=== PATIENT | male | born 1960 | race Caucasian/White ===

== ENCOUNTER 2022-02-08 08:33 | Outpatient (CLI) | payer BC, SELFPAY ==
[2022-02-08 17:34] LABS: Cholesterol* 122 mg/dL (90-199)
[2022-02-08 17:35] LABS: HDL Cholesterol* 32 mg/dL (>=40); LDL Cholesterol Calculated 75 mg/dL (<100); Triglycerides* 75 mg/dL (40-149)
[2022-02-08 18:07] LABS: PSA Screen* 0.93 ng/mL (0.10-4.00)
[2022-02-09 15:51] LABS: Sex Hormone Binding Globulin 46 nmol/L (19-76); Testosterone, Adult Male 349 ng/dL (300-720); Testosterone, Free Calculation 52 pg/mL (47-244); Testosterone, Percentage Free 1.5 % (1.6-2.9)
== END 2022-02-08 08:34 | disposition home or self-care (01) ==
PROVIDERS: PCP Family Medicine; Visit Provider Family Medicine
DX: R53.83 Other fatigue (principal); M06.9 Rheumatoid arthritis, unspecified; F32.9 Major depressive disorder, single episode, unspecified; D12.6 Benign neoplasm of colon, unspecified; Z79.899 Other long term (current) drug therapy; Z12.5 Encounter for screening for malignant neoplasm of prostate; Z13.6 Encounter for screening for cardiovascular disorders; G47.30 Sleep apnea, unspecified
CPT/HCPCS: 80061; 84153; 84403

== ENCOUNTER 2022-03-03 11:54 | Outpatient (CLI) | payer BC, SELFPAY ==
[2022-03-03 15:47] LABS: SARS PCR* Negative SARS-CoV-2 (Negative)
== END 2022-03-03 11:55 | disposition home or self-care (01) ==
LOC: OP CLINIC 11:55
PROVIDERS: PCP Family Medicine; Visit Provider Surgery
DX: Z12.11 Encounter for screening for malignant neoplasm of colon (principal); K63.5 Polyp of colon; Z86.010 Personal history of colon polyps
CPT/HCPCS: 45385; 87635; 88305; J2250; J3010

== ENCOUNTER 2022-03-16 19:43 | Outpatient (CLI) | payer BC, SELFPAY | END 2022-03-16 19:44 | disposition home or self-care (01) | PROVIDERS: PCP Family Medicine; Visit Provider Family Medicine | DX: G47.30 Sleep apnea, unspecified (principal) | CPT/HCPCS: 95806 ==

== ENCOUNTER 2022-06-20 15:36 | Inpatient (IN) | payer BC, SELFPAY ==
[2022-06-20] VITALS (8 sets, daily range): BP systolic 117–146; BP diastolic 66–92; PULSE 68–76; RESP 14–18; TEMP 36.7–36.9; O2SAT 98–100; BMI 27.4; BMI 27.1
--- NOTE | 2022-06-20 17:13 | ED.GENADULT ---
HPI - General Adult General Time Seen by Provider: 17:13 Date Seen: 06/20/22 Chief complaint: Abdominal Pain Stated complaint: Blockage Time Seen by Provider: 06/20/22 17:13 Source: patient, RN notes reviewed and old records reviewed Mode of arrival: ambulatory Limitations: no limitations History of Present Illness HPI narrative: Patient is a 62-year-old male referred to the ER by a [facility] for gallbladder issues. He states he has a bile duct blockage in needs his gallbladder out. 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 He stopped at a hospital in [place] because he noticed that his urine was getting dark and he was only able to eat small amounts of food. He states that he was hospitalize, they thought maybe that the bile duct blockage had resolved because his liver enzymes were going down. He states he had a CT and then an MRI. He talks about a 1 to 1.5 mm stone. He was supposed to go to [place] after [place]. He was hospitalized 06 16-06 17. On Monday he noted his stool turned white and his urine was turning darker again when it had been improving. He decided to drive back to [place]. His urine is dark, orange tinge now when it was more bright yellowish. His bowel is a bit better but it still light chen, not back to normal. He has had no fevers, no vomiting. He gets nauseated if he drinks or eats too much. If he eats too much she also gets a gas feeling like he can not get rid of or burp to relieve it. He is really not in much pain per report. He states he requested the records to be sent here but did not get any of them at the clinic per report. I have labs from [facility] on 06/17/22 which showed normal electrolytes, AST of 253, ALT of 480, alkaline phosphatase of 162, lipase of 51. Urine showed bilirubin but no evidence of infection. His white blood count was normal, hemoglobin was normal at 14.2. He had a negative rapid COVID. I do not have his imaging reports. Patient does admit that he had been on Augmentin, was called in by the PA that he had seen in [place]. He started getting significant itching but no rash after taking this. He was not sure if that might be an allergy. Reviewed with him it might be interaction between the elevated bilirubin/liver issues verses possible her allergic reaction. I think at this point will avoid penicillins and go with a different class of medicines. Have had multiple conversations with our surgeon Dr. Slaughter, we have contacted [facility]/[place]/[facility]/[place], no availability at these facilities to transfer for ERCP. Related Data Home Medications Medication Instructions Recorded Confirmed epinephrine 0.3 mg/0.3 mL 0.3 mg IM ONCE PRN 01/28/22 03/11/22 injection, auto-injector Previous Rx's Medication Instructions Recorded tramadol 50 mg tablet 50 - 100 mg PO Q6H PRN pain #30 05/05/22 tabs dextroamphetamine-amphetamine 20 30 mg PO QDAY #45 tabs 06/06/22 mg tablet Allergies Allergy/AdvReac Type Severity Reaction Status Date / Time bee venom protein (honey bee) Allergy Severe Hives Verified 03/11/22 09:37 Sulfa (Sulfonamide Allergy Mild Rash Verified 03/11/22 09:37 Antibiotics) Review of Systems Status of ROS: Reports: 10 or more systems reviewed and unremarkable except as noted in History and below [facility] Medical History Back pain Onychomycosis Family History Other Colon cancer Social History Smoking Status: Never smoker Exam Const: Vital Signs, click to edit/add: Vital Signs - 24 hr 06/20/22 16:19 Temperature 98.5 F Pulse Rate [Pulse Oximeter] 76 Respiratory Rate 18 Blood Pressure [Ri ght Upper Arm] 120/86 Pulse Oximetry 100 Oxygen Delivery Me thod Room Air Documenting provider has reviewed patient's vital signs: yes Common normals: no apparent distress, average body habitus, oriented x3, no limitations, healthy appearing and alert General appearance: cooperative, comfortable, well kempt and well developed HENMT: Common normals: normocephalic, head/scalp atraumatic, hearing grossly normal bilaterally, external ears normal, external nose normal, nasal mucous membranes and turbinates normal, moist oral mucous membranes, oropharynx normal, dentition normal and gingiva normal Head and scalp: normocephalic and atraumatic Nose: external nose normal and nasal mucous membranes and turbinates normal External ear: external ears normal Eye: Common normals: PERRL, EOMs intact bilaterally and conjunctivae normal Conjunctiva: conjunctiva(e) normal Sclera: sclera abnormal (Mild bilateral icterus appreciated) Pupil: PERRL Neck & C-Spine: Common normals: full ROM, no lymphadenopathy, supple, no meningeal signs, no JVD and thyroid normal Thyroid: thyroid normal Resp: Common normals: normal respiratory effort, no retractions, no use of accessory muscles and clear to auscultation bilaterally Auscultation: clear to auscultation bilaterally Cardio: Common normals: no JVD, regular rate, regular rhythm, S1 normal heart sound, S2 normal heart sound, no gallops, no clicks and no murmurs Rate: regular rate Rhythm: regular rhythm Heart sounds: S1 normal and S2 normal GI: Common normals: Normal to inspection, nondistended, normoactive bowel sounds present, soft to palpation (Very mild right upper quadrant tenderness without any rebound or guarding ), no hepatosplenomegaly and no masses Palpation: soft (Very mild right upper quadrant tenderness without any rebound or guarding ) and no hepatosplenomegaly Neuro: Common normals: oriented x3 and gait normal Sensorium/orientation: alert Meningeal signs: no meningeal signs Speech: speech normal Psych: Appearance: well kempt Course Course Hospital Course: Nursing staff did establish an IV, I will order labs off the blood drawn. Will repeat his chemistries, CBC and liver enzymes, lipase. We will obtain a right upper quadrant ultrasound. May need to proceed with CT. I have discussed with him that sometimes people in this situation need an ERCP which we cannot do here. We will just take this workup stepwise and see where leads us. He is not that painful right now, no fever. He understands we do need to update his COVID in case he needs anything procedure only. He is in agreement with this plan. Consultations Consultation #1: Multiple conversations with our surgeon on-call. This time were unable to transfer this patient. There is concern for obstructive change. Patient is at risk for infection based on his immunologic given for his rheumatoid arthritis. Recommendation is for hospitalization here with initiation of antibiotics, cholecystectomy either prior or after ERCP. Will have to figure out the ERCP component. Consultation #2: Spoke with our hospitalist Dr. Peña. Will be assuming care. We discussed antibiotics. She requested I initiate ertapenem which I have. She will be assuming care. Time: 20:26 Vital Signs Vital signs: Initial Vital Signs Temperature 98.5 F 06/20/22 16:19 Temperature Source Temporal Artery Scan 06/20/22 16:19 Pulse Rate 76 06/20/22 16:19 Respiratory Rate 18 06/20/22 16:19 Blood Pressure 120/86 06/20/22 16:19 Blood Pressure Mean 97 06/20/22 16:19 Blood Pressure Position Sitting 06/20/22 16:19 Pulse Oximetry 100 06/20/22 16:19 Oxygen Delivery Method 06/20/22 16:19 Vital Signs Temperature 98.5 F 06/20/22 16:19 Pulse Rate 76 06/20/22 16:19 Respiratory Rate 18 06/20/22 16:19 Blood Pressure 120/86 06/20/22 16:19 Pulse Oximetry 100 06/20/22 16:19 Oxygen Delivery Method 06/20/22 16:19 Temperature 98.5 F 06/20/22 16:19 Pulse Rate 76 06/20/22 16:19 Respiratory Rate 18 06/20/22 16:19 Blood Pressure 120/86 06/20/22 16:19 Pulse Oximetry 100 06/20/22 16:19 Oxygen Delivery Method 06/20/22 16:19 Medical Decision Making Lab Data Lab results reviewed: Yes I reviewed the patient's lab results Labs: Lab Results 06/20/22 06/20/22 06/20/22 Range/Units 17:15 17:15 17:35 WBC 8.38 (4.50-11.00) K/uL RBC 5.10 (4.30-5.90) m/uL Hgb 15.4 (13.5-17.5) gm/dL Hct 45.7 (37.0-53.0) % MCV 90 (80-100) fL MCH 30 (26-34) pg MCHC 34 (32-36) gm/dL RDW Coeff of Rosibel 13.5 (11.5-15.5) % Plt Count 331 (140-440) K/uL Neut % (Auto) 59.9 (42.0-72.0) % Lymph % (Auto) 25.4 (20-44) % [place] % (Auto) 8.5 (0.0-11.0) % Eos % (Auto) 5.0 (0.0-7.0) % Baso % (Auto) 0.7 (0.0-3.0) % Neut # (Auto) 5.02 (1.7-7.0) K/uL Lymph # (Auto) 2.13 (0.90-2.90) K/uL [place] # (Auto) 0.70 (0.00-0.90) K/UL Eos # (Auto) 0.42 (0.00-0.50) K/uL Baso # (Auto) 0.06 (0.00-0.30) K/uL Abs Immat Gran (auto) 0.04 (0.00-0.30) K/uL Imm/Tot Granulo (auto) 0.5 % Sodium 138 (135-149) mmol/L Potassium 3.8 (3.6-5.1) mmol/L Chloride 104 (96-114) mmol/L Carbon Dioxide 26 (20-32) mmol/L BUN 13 (7-30) mg/dL Creatinine 1.0 (0.5-1.5) mg/dL Estimated Creat Clear 74.10 Estimated GFR 85 ml/min Glucose 91 (60-115) mg/dL Calcium 9.2 (8.4-10.6) mg/dL Total Bilirubin 5.2 H (0.1-1.5) mg/dL Direct Bilirubin 4.0 H (0.0-0.5) mg/dL AST 115 H (12-35) U/L ALT 297 H (4-50) U/L Alkaline Phosphatase 218 H (40-150) U/L C-Reactive Protein 0.7 (0.5-1.0) mg/dL Total Protein 7.5 (6.0-8.3) g/dL Albumin 4.4 (3.3-5.0) g/dL Lipase 123 (23-300) U/L SARS-CoV-2 (PCR) Negative SARS-CoV-2 (Negative) Imaging Data US - abdomen: Attestation: I have reviewed the pertinent imaging results. Radiologist's impression: Patient: WILLEM CINTRON Facility:?[facility] Patient ID:?[id number] Site Patient ID:?[id number]. Site :?[id number] Study:?US Abdomen RUQ-06/20/2022 6:57:18 PM Ordering Physician:Amanda Bangura Final Report: INDICATION: Jaundice, known gallbladder disease per patient at outside location. TECHNIQUE: Ultrasound abdomen limited. Sonographic images of the right upper quadrant were obtained using jaffe-scale and color Doppler images. COMPARISON: None. FINDINGS: Liver: Normal in size and echotexture. No suspicious masses. No intrahepatic biliary dilation. Gallbladder: Distended with large amount of echogenic material, probably a combination of sludge and small stones. Normal wall thickness. No pericholecystic fluid. Common bile duct: Dilated measuring 10 mm. Questionable echogenic material in the common bile duct could be sludge. Pancreas: Unremarkable. Right kidney: Normal in size. Normal echotexture and cortex. No suspicious masses, stones, or hydronephrosis. Simple cyst. Vasculature: Proximal abdominal aorta and IVC are unremarkable. IMPRESSION: Large amount of gallbladder sludge with possible gallstones. Dilated common bile duct raises the possibility of choledocholithiasis. Consider ERCP or MRCP, as clinically indicated. Dictated by Marcin Patton MD @ 06/20/2022 7:40:43 PM (Electronic Signature) Critical Care Time Critical Care Time Critical Care Time: No Discharge Plan Discharge Clinical Impression: Cholelithiasis with choledocholithiasis Patient Disposition: Admitted As Inpatient Condition: Stable
--- NOTE | 2022-06-20 17:27 | CRLHL7_ITS ---
For Patients: As a result of the Cures Act, medical imaging exams and procedure reports are released immediately into your electronic medical record. You may view this report before your referring provider. If you have questions, please contact your health care provider. INDICATION: Jaundice, known gallbladder disease per patient at outside location. TECHNIQUE: Ultrasound abdomen limited. Sonographic images of the right upper quadrant were obtained using jaffe-scale and color Doppler images. COMPARISON: None. FINDINGS: Liver: Normal in size and echotexture. No suspicious masses. No intrahepatic biliary dilation. Gallbladder: Distended with large amount of echogenic material, probably a combination of sludge and small stones. Normal wall thickness. No pericholecystic fluid. Common bile duct: Dilated measuring 10 mm. Questionable echogenic material in the common bile duct could be sludge. Pancreas: Unremarkable. Right kidney: Normal in size. Normal echotexture and cortex. No suspicious masses, stones, or hydronephrosis. Simple cyst. Vasculature: Proximal abdominal aorta and IVC are unremarkable. IMPRESSION: Large amount of gallbladder sludge with possible gallstones. Dilated common bile duct raises the possibility of choledocholithiasis. Consider ERCP or MRCP, as clinically indicated. Dictated by Marcin Patton MD @ 06/20/2022 7:40:43 PM (Electronically Signed)
[2022-06-20 17:54] LABS: Albumin* 4.4 g/dL (3.3-5.0); Chloride* 104 mmol/L (96-114); Sodium* 138 mmol/L (135-149)
[2022-06-20 17:55] LABS: Basophils Absolute Auto 0.06 K/uL (0.00-0.30); Basophils Percent Auto 0.7 % (0.0-3.0); Eosinophils Absolute Auto 0.42 K/uL (0.00-0.50); Hematocrit 45.7 % (37.0-53.0); Hemoglobin* 15.4 gm/dL (13.5-17.5); Immature Granulocytes Abs Auto 0.04 K/uL (0.00-0.30); Immature Granulocytes Pct Auto 0.5 %; Lymphocytes Absolute Auto 2.13 K/uL (0.90-2.90); Lymphocytes Percent Auto 25.4 % (20-44); Mean Corpuscular HGB Conc 34 gm/dL (32-36); Mean Corpuscular Hemoglobin 30 pg (26-34); Mean Corpuscular Volume 90 fL (80-100); Monocytes Percent Auto 8.5 % (0.0-11.0); Neutrophils Absolute Auto 5.02 K/uL (1.7-7.0); Neutrophils Percent Auto 59.9 % (42.0-72.0); Platelet Count* 331 K/uL (140-440); Potassium* 3.8 mmol/L (3.6-5.1); RDW Coefficient of Variation % 13.5 % (11.5-15.5); White Blood Count* 8.38 K/uL (4.50-11.00)
[2022-06-20 17:56] LABS: Slide Review Reflex No
[2022-06-20 17:57] LABS: Aspartate Amino Transferase* 115 U/L (12-35); Bilirubin Total* 5.2 mg/dL (0.1-1.5); Carbon Dioxide* 26 mmol/L (20-32); Estimated Glomerular Filt Rate 85 ml/min
[2022-06-20 17:58] LABS: Alanine Aminotransferase* 297 U/L (4-50); Alkaline Phosphatase* 218 U/L (40-150); Blood Urea Nitrogen* 13 mg/dL (7-30); Calcium* 9.2 mg/dL (8.4-10.6); Glucose* 91 mg/dL (60-115); Lipase* 123 U/L (23-300); Total Protein* 7.5 g/dL (6.0-8.3)
[2022-06-20 18:01] LABS: C Reactive Protein* 0.7 mg/dL (0.5-1.0)
[2022-06-20 18:15] LABS: SARS PCR* Negative SARS-CoV-2 (Negative)
--- NOTE | 2022-06-20 20:02 | ED.NURSE ---
Facilities contacted for potential ERCP for Pt. [facility] system: Declined [facility] system: Declined [facility] system: Full/Declined Critical access hospital system: Full/Declined [facility]: Full/Declined
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
[2022-06-20] MEDS: ERTAPENEM 1 GM in 0.9 % SODIUM CHLORIDE Mini-bag 100 ML IVPB (21:00)
--- NOTE | 2022-06-20 21:28 | ED.NURSE ---
Report given to RAEANN Eduardo. Pt will go to Rm 258.
[2022-06-20] MEDS: ACETAMINOPHEN 325 MG TABLET PO (21:59)
[2022-06-20] MEDS: 5 % DEXTROSE IN LAC RINGER'S 1,000 ML 100 ML IV (22:00)
[2022-06-20 22:07] LABS: INR 0.84 (0.91-1.10); Prothrombin Time 12.1 Seconds
[2022-06-20 22:10] LABS: Gamma Glutamyl Transpeptidase* 328 U/L (8-55)
[2022-06-20] MEDS: PANTOPRAZOLE SODIUM 40 MG INJ IVP (22:57)
[2022-06-21] VITALS (27 sets, daily range): BP systolic 100–157; BP diastolic 58–106; PULSE 62–85; RESP 14–19; TEMP 35.8–36.9; O2SAT 71–97
--- NOTE | 2022-06-21 05:16 | PC.NURSE ---
[id number] Pt slept all night, denies pain, NPO with very small sips/chips during night. voiding adaquately
--- NOTE | 2022-06-21 06:40 | P.GSCN_ITS ---
History of Present Illness Consult details Date Seen: 06/21/22 Consult date: 06/21/22 Narrative: The patient is a 62-year-old male in with a history of rheumatoid arthritis on immune modulating agents who last Monday noted his urine was very dark. This happened while he was traveling through [place] for work. He stopped and the [facility] emergency department had labs which showed elevated liver function tests. There he also had a CT scan and an MRCP. I do not have results of this, however reportedly there was choledocholithiasis and no mass. His labs improved during his stay in the ER and it was thought that perhaps the stone passed and so he elected to continue on with his trip. He went to [place] and finishes work. On Monday he noted his stool had turned white and his urine was again dark. On Monday he drove back home. He then came in to see Dr. Marina yesterday however being unable to obtain any urgent workup in clinic was referred to the emergency department. He states that other than the light colored stools and dark urine, he has not had any other symptoms. No pain, no nausea, no vomiting. He feels as though his hands may be more swollen. He has never had anything like this before. He does not drink alcohol. Review of Systems Status of ROS: Reports: 10 or more systems reviewed and unremarkable except as noted in History and below [facility] Medical History (Updated 06/20/22 @ 21:40 by Coni Peña MD) ADD (attention deficit disorder) Bee sting reaction Dyslipidemia MINO (obstructive sleep apnea) Rheumatoid arthritis Surgical History No history of previous surgery Family History (Updated 06/21/22 @ 08:51 by Carolin Slaughter MD) Other Colon cancer Social History (Updated 06/20/22 @ 21:36 by Coni Peña MD) Narrative: Nonsmoker, nondrinker. 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 Travels. . However, lives separately from his Coni. Three adult children. Highest level of school completed/degree received: some college, no degree Smoking Status: Never smoker Do you use any of these nicotine containing products: None Second hand tobacco smoke exposure: No How often do you have a drink containing alcohol: never AUDIT-C Alcohol total score: 0 Non-prescribed substance use: denies use Caffeine: Yes (2 cans soda daily) service: No Meds Home Medications and Allergies Home Medications Medication Instructions Recorded Confirmed Type epinephrine 0.3 mg/0.3 mL 0.3 mg IM ONCE PRN 01/28/22 06/21/22 History injection, auto-injector Allergies Allergy/AdvReac Type Severity Reaction Status Date / Time bee venom protein (honey bee) Allergy Severe Hives Verified 03/11/22 09:37 Sulfa (Sulfonamide Allergy Mild Rash Verified 03/11/22 09:37 Antibiotics) Exam Narrative: Exam Narrative: General appearance: Alert, cooperative, and in no distress Eyes: PERRLA, eye lids clear, and scleral icterus HENT Head: Normocephalic Ears: External ears normal Pulmonary: Breathing nonlabored on room air Cardiovascular Heart: Regular rate Extremities: warm and well perfused Gastrointestinal Abdominal: soft, no-tender, non distended. No scars Musculoskeletal: Extremities: Upper: Both upper extremities have normal joint range of motion and intact strength. Lower: Both lower extremities have normal joint range of motion and intact strength. Skin: mildly jaundiced Neurologic: No focal deficits Psychiatric: Alert, oriented, cooperative, normal affect. Const: Vital Signs, click to edit/add: Vital Signs - 24 hr 06/20/22 16:19 06/20/22 21:32 06/20/22 21:35 Temperature 98.5 F 98.5 F Pulse Rate Pulse Rate [Left A pical] Pulse Rate [Pulse Oximeter] 76 68 68 Pulse Rate [orthos tatic lying Left A pical] Pulse Rate [orthos tatic sitting Left Apical] Pulse Rate [orthos tatic standing Lef t Apical] Respiratory Rate 18 14 14 Blood Pressure [Ri ght Arm] Blood Pressure [Ri ght Upper Arm] 120/86 117/66 117/66 Blood Pressure [or thostatic lying Ri ght Arm] Blood Pressure [or thostatic sitting Right Arm] Blood Pressure [or thostatic standing Right Arm] Pulse Oximetry 100 100 Oxygen Delivery Me thod Room Air Room Air 06/20/22 21:59 06/20/22 21:39 06/20/22 22:17 Temperature 98.1 F 98.1 F 98.1 F Pulse Rate Pulse Rate [Left A pical] 69 Pulse Rate [Pulse Oximeter] Pulse Rate [orthos tatic lying Left A pical] Pulse Rate [orthos tatic sitting Left Apical] Pulse Rate [orthos tatic standing Lef t Apical] Respiratory Rate 18 18 Blood Pressure [Ri ght Arm] 146/92 H Blood Pressure [Ri ght Upper Arm] Blood Pressure [or thostatic lying Ri ght Arm] Blood Pressure [or thostatic sitting Right Arm] Blood Pressure [or thostatic standing Right Arm] Pulse Oximetry 98 98 Oxygen Delivery Me thod Room Air Room Air 06/20/22 22:33 06/20/22 22:44 06/21/22 00:00 Temperature 98.2 F Pulse Rate Pulse Rate [Left A pical] 71 Pulse Rate [Pulse Oximeter] Pulse Rate [orthos tatic lying Left A pical] 71 Pulse Rate [orthos tatic sitting Left Apical] 76 Pulse Rate [orthos tatic standing Lef t Apical] 75 Respiratory Rate 18 18 Blood Pressure [Ri ght Arm] 137/106 H Blood Pressure [Ri ght Upper Arm] Blood Pressure [or thostatic lying Ri ght Arm] 138/85 Blood Pressure [or thostatic sitting Right Arm] 141/89 H Blood Pressure [or thostatic standing Right Arm] 142/89 H Pulse Oximetry 98 97 Oxygen Delivery Me thod Room Air Room Air 06/21/22 01:04 06/21/22 03:00 Temperature 97.9 F Pulse Rate 71 Pulse Rate [Left A pical] 66 Pulse Rate [Pulse Oximeter] Pulse Rate [orthos tatic lying Left A pical] Pulse Rate [orthos tatic sitting Left Apical] Pulse Rate [orthos tatic standing Lef t Apical] Respiratory Rate 16 Blood Pressure [Ri ght Arm] 100/58 L Blood Pressure [Ri ght Upper Arm] Blood Pressure [or thostatic lying Ri ght Arm] Blood Pressure [or thostatic sitting Right Arm] Blood Pressure [or thostatic standing Right Arm] Pulse Oximetry 95 Oxygen Delivery Me thod Room Air Results Labs Labs: Abnormal lab results 06/20/22 06/20/22 Range/Units 17:15 17:15 INR 0.84 L (0.91-1.10) Total Bilirubin 5.2 H (0.1-1.5) mg/dL Direct Bilirubin 4.0 H (0.0-0.5) mg/dL GGT 328 H (8-55) U/L AST 115 H (12-35) U/L ALT 297 H (4-50) U/L Alkaline Phosphatase 218 H (40-150) U/L Diabetes panel 06/20/22 Range/Units 17:15 Sodium 138 (135-149) mmol/L Potassium 3.8 (3.6-5.1) mmol/L Chloride 104 (96-114) mmol/L Carbon Dioxide 26 (20-32) mmol/L BUN 13 (7-30) mg/dL Creatinine 1.0 (0.5-1.5) mg/dL Glucose 91 (60-115) mg/dL Calcium 9.2 (8.4-10.6) mg/dL AST 115 H (12-35) U/L ALT 297 H (4-50) U/L Alkaline Phosphatase 218 H (40-150) U/L Total Protein 7.5 (6.0-8.3) g/dL Albumin 4.4 (3.3-5.0) g/dL Calcium panel 06/20/22 Range/Units 17:15 Calcium 9.2 (8.4-10.6) mg/dL Albumin 4.4 (3.3-5.0) g/dL Pituitary panel 06/20/22 Range/Units 17:15 Sodium 138 (135-149) mmol/L Potassium 3.8 (3.6-5.1) mmol/L Chloride 104 (96-114) mmol/L Carbon Dioxide 26 (20-32) mmol/L BUN 13 (7-30) mg/dL Creatinine 1.0 (0.5-1.5) mg/dL Glucose 91 (60-115) mg/dL Calcium 9.2 (8.4-10.6) mg/dL Adrenal panel 06/20/22 Range/Units 17:15 Sodium 138 (135-149) mmol/L Potassium 3.8 (3.6-5.1) mmol/L Chloride 104 (96-114) mmol/L Carbon Dioxide 26 (20-32) mmol/L BUN 13 (7-30) mg/dL Creatinine 1.0 (0.5-1.5) mg/dL Glucose 91 (60-115) mg/dL Calcium 9.2 (8.4-10.6) mg/dL Total Bilirubin 5.2 H (0.1-1.5) mg/dL AST 115 H (12-35) U/L ALT 297 H (4-50) U/L Alkaline Phosphatase 218 H (40-150) U/L Total Protein 7.5 (6.0-8.3) g/dL Albumin 4.4 (3.3-5.0) g/dL All other labs normal. Imaging Additional studies: Diagnostic Imaging Report Patient: Teofilo Osorio MR#: [id number] : 1960 Acct:[id number] Loc: ED Service Date: 06/20/[address]: Ordering Physician: Sveta Magallon M.D. Date of Service: 06/20/22 Procedure(s): US abdomen limited Accession Number(s): [id number] cc: Marcus Carreno M.D.; Sveta Magallon M.D.~ For Patients:? As a result of the Cures Act, medical imaging exams and procedure reports are released immediately into your electronic medical record.? You may view this report before your referring provider.? If you have questions, please contact your health care provider. INDICATION: Jaundice, known gallbladder disease per patient at outside location. TECHNIQUE: Ultrasound abdomen limited.? Sonographic images of the right upper quadrant were obtained using jaffe-scale and color Doppler images. COMPARISON: None. FINDINGS: Liver: Normal in size and echotexture.? No suspicious masses.? No intrahepatic biliary dilation. Gallbladder: Distended with large amount of echogenic material, probably a combination of sludge and small stones. Normal wall thickness.? No pericholecystic fluid. Common bile duct: Dilated measuring 10 mm.? Questionable echogenic material in the common bile duct could be sludge. Pancreas: Unremarkable.? Right kidney: Normal in size.? Normal echotexture and cortex.? No suspicious masses, stones, or hydronephrosis. Simple cyst. Vasculature: Proximal abdominal aorta and IVC are unremarkable.? IMPRESSION: Large amount of gallbladder sludge with possible gallstones. Dilated common bile duct raises the possibility of choledocholithiasis. Consider ERCP or MRCP, as clinically indicated. Dictated by Marcin Patton MD @ 06/20/2022 7:40:43 PM Assessment and Plan Assessment and plan (1) Cholelithiasis with choledocholithiasis: Problem comment: Hyperbilirubinemia. Minimal pain. Fluids, antibiotics. NPO. Will discuss with general surgery team if we transfer for ERCP and return for cholecystectomy, full transfer, or or cholangiogram/cholecystectomy. Status: Acute (2) Rheumatoid arthritis: Problem comment: Currently gets golimumab (Simponi) q 2 mo. last infusion was beginning of May. Followed by [facility] in [place]. 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 Status: Acute Plan The patient is a 62-year-old male with cholelithiasis and likely c holedocholithiasis. per report he did have choledocholithiasis on his MRCP from [facility], however I do not have that available. I discussed with the patient that in the event of painless jaundice we must rule out a mass, however he states that he saw the report and that no mass/tumor was noted. We are going to continue to try to get this report. I explained that the treatment for this is laparoscopic cholecystectomy as well as ERCP. Because we have been unable to transfer him for ERCP, we are planning on cholecystectomy and intraoperative cholangiogram which will likely at least make the diagnosis and decompress the bile duct temporarily. As long as he is not acutely ill we could get him for possible outpatient ERCP versus continuing to make attempts at inpatient transfer. We discussed the procedure as well as risks and benefits of surgery which include bleeding, infection, bile leak, conversion to open or injury to other structures, specifically the common bile duct. We also discussed recovery. I explained to him that Given this biliary obstruction, I recommend not postponing treatment because his immuno suppression does increases risk for sepsis. I recommend that he wait at least 2 weeks after surgery to resume his normal dosing. He is agreeable with this plan and signed informed consent. We will get him to the OR at the 1st availability.
[2022-06-21 06:44] LABS: Ionized Calcium* 1.17 mmol/L (1.11-1.30)
[2022-06-21 06:48] LABS: Hematocrit 42.1 % (37.0-53.0); Hemoglobin* 14.3 gm/dL (13.5-17.5); Mean Corpuscular HGB Conc 34 gm/dL (32-36); Mean Corpuscular Hemoglobin 30 pg (26-34); Mean Corpuscular Volume 89 fL (80-100); Platelet Count* 280 K/uL (140-440); Red Blood Count 4.72 m/uL (4.30-5.90); White Blood Count* 6.45 K/uL (4.50-11.00)
[2022-06-21 06:53] LABS: Slide Review Reflex No
[2022-06-21 07:06] LABS: Albumin* 3.4 g/dL (3.3-5.0); Chloride* 106 mmol/L (96-114)
[2022-06-21 07:07] LABS: Potassium* 3.9 mmol/L (3.6-5.1); Sodium* 138 mmol/L (135-149)
[2022-06-21 07:09] LABS: Creatinine* 0.9 mg/dL (0.5-1.5); Estimated Glomerular Filt Rate 97 ml/min
[2022-06-21 07:10] LABS: Alanine Aminotransferase* 240 U/L (4-50); Alkaline Phosphatase* 179 U/L (40-150); Aspartate Amino Transferase* 96 U/L (12-35); Bilirubin Total* 3.7 mg/dL (0.1-1.5); Blood Urea Nitrogen* 13 mg/dL (7-30); Calcium* 8.6 mg/dL (8.4-10.6); Carbon Dioxide* 26 mmol/L (20-32); Gamma Glutamyl Transpeptidase* 278 U/L (8-55); Glucose* 100 mg/dL (60-115); Magnesium* 1.9 mg/dL (1.5-2.6); Total Protein* 6.1 g/dL (6.0-8.3)
[2022-06-21 07:13] LABS: C Reactive Protein* 0.7 mg/dL (0.5-1.0)
[2022-06-21] MEDS: 5 % DEXTROSE IN LAC RINGER'S 1,000 ML 100 ML IV ×2 (07:47→13:55)
--- NOTE | 2022-06-21 11:42 | CRLHL7_ITS ---
For Patients: As a result of the Century Cures Act, medical imaging exams and procedure reports are released immediately into your electronic medical record. You may view this report before your referring provider. If you have questions, please contact your health care provider. INDICATION : Laparoscopic cholecystectomy. TECHNIQUE : Intraoperative cholangiogram. Contrast injected via gallbladder neck and cystic duct. FINDINGS : Fluoroscopy time was 105.6 seconds. One image was obtained. IMPRESSION : Normal caliber intra and extrahepatic ducts. No filling defects. Contrast seen within the duodenum. Normal intraoperative cholangiogram. Dictated by Wilfrid Greco MD @ 06/21/2022 1:07:01 PM (Electronically Signed)
[2022-06-21] MEDS: 0.9% SODIUM CHL 50 ML VIAL 15 ML INJECTION (12:30)
[2022-06-21] MEDS: BUPIVACAINE 0.5% 30 ML 20 ML INJECTION (12:35)
[2022-06-21] MEDS: IOPAMIDOL 50 ML VIAL 35 ML INJECTION (12:40)
--- NOTE | 2022-06-21 13:12 | P.GSOP_ITS ---
Operative Note Date of procedure: 06/21/22 Type of Procedure: 1. Laparoscopic cholecystectomy 2. Intraoperative cholangiogram Procedure Description: After discussing the risks and benefits of the procedure, the patient signed informed consent.? The operative site was marked and the patient was brought to the operating room and placed on the operating table in supine position.? Care was taken to pad the patient's pressure points.?? The patient was then intubated by anesthesia.?? The operative site was then prepped and draped in the usual sterile fashion.? A time-out was then performed. Entrance to the abdomen was gained via a 5 mm Visiport in the left upper q uadrant. The abdomen was insufflated and briefly surveyed for signs of injury. There was none. 11 mm umbilical port was placed as well as 2 working ports along the right costal margin. Patient was then placed in reverse Trendelenburg position with the right side up. The gallbladder fundus was grasped and retracted cephalad. The infundibulum was grasped. A combination of hook cautery and blunt dissection was used to carefully dissect out the cystic duct and artery until they could clearly be seen entering the gallbladder without any intervening structures. The gallbladder was dissected off the cystic plate to achieve the critical view. Once this was achieved a single clip was placed on the distal and the cystic duct and was partially transected with scissors. An intraoperative cholangiogram catheter was brought onto the field and inserted into the cystic duct. The catheter passed easily without any resistance. A C- arm was brought onto the field and an intraoperative cholangiogram performed, with no evidence of any retained stones and contrast flowing freely into the duodenum. The common bile duct and right and left hepatic ducts were also visualized. The C-arm was then removed from the field and the cholangiogram catheter removed from the cystic duct. Two clips were then placed proximally on the cystic duct and was fully transected. The artery was ligated with 1 clip distally and 2 clips proximally and transected with scissors. The gallbladder was then taken off of the liver bed. And removed from the abdomen using an Endo-Catch bag. The gallbladder bed was surveyed for hemostasis. A small amount of bile which had spilled was suctioned from the abdomen. The umbilical port fascia was closed via Geovany-Makenna with 0 Vicryl. The ports were then removed under direct vision.The skin was closed with absorbable subcuticular suture. Instrument sponge and needle counts were correct at the end of the case. The patient was then woken and transferred to the PACU in stable condition. ? Findings: Normal intraoperative cholangiogram with no evidence of retained stones. Cholelithiasis. Anesthesia: GETA Surgeon: Valerie Brennan MD Estimated blood loss (mL): 5 Condition: stable Disposition: PACU
--- NOTE | 2022-06-21 13:17 | W.ANESCHARGE ---
Anesthesia Charges Start Date/Time Anesthesia Start Date: 06/21/22 Anesthesia Start Time: 11:22 Stop Date/Time Anesthesia Stop Date: 06/21/22 Anesthesia Stop Time: 13:16 Summary Emergency: No
--- NOTE | 2022-06-21 13:25 | W.ANESCHARGE ---
Anesthesia Charges Start Date/Time Anesthesia Start Date: 06/21/22 Anesthesia Start Time: 11:22 Stop Date/Time Anesthesia Stop Date: 06/21/22 Anesthesia Stop Time: 13:16 Summary Emergency: No
--- NOTE | 2022-06-21 13:51 | SUR.PHASEI ---
patient met discharge criteria per anesthesia
[2022-06-21] MEDS: HYDROmorphone 0.5 mg/0.5 ml inj IVP ×2 (13:55→14:56)
[2022-06-21] MEDS: OXYCODONE 5 MG TABLET PO ×2 (16:06→21:20)
--- NOTE | 2022-06-21 17:16 | PC.NURSE ---
Shift Summary: Patient pleasant and cooperative. C/o bladder pain post-op, bladder scan done and found 337cc, encouraged to go to bathroom to void, able to void 300cc and stated he felt relief, has voided 600cc since. Saline locked, tolerating regular diet, denies nausea. C/o itching however stated he had this prior to surgery. Vitals stable and WNL. at bedside earlier in evening. SBA to bathroom due to weakness/pain.
[2022-06-22 02:11] VITALS: BP 128/66; PULSE 77; RESP 18; TEMP 36.8; O2SAT 97
[2022-06-22 02:41] VITALS: PULSE 72
--- NOTE | 2022-06-22 03:15 | PC.NURSE ---
: Pt up by self in room, i&o adeq, pain minimal thus denied ice and meds. VSS on RA, incisions intact no drainage.
[2022-06-22 06:42] LABS: Albumin* 3.4 g/dL (3.3-5.0)
[2022-06-22 06:44] LABS: Bilirubin Direct* 1.1 mg/dL (0.0-0.5); Bilirubin Total* 2.5 mg/dL (0.1-1.5)
[2022-06-22 06:45] LABS: Alanine Aminotransferase* 191 U/L (4-50); Alkaline Phosphatase* 172 U/L (40-150); Aspartate Amino Transferase* 69 U/L (12-35); Total Protein* 6.1 g/dL (6.0-8.3)
[2022-06-22 07:36] VITALS: PULSE 71
[2022-06-22 08:27] VITALS: BP 107/65; PULSE 85; RESP 16; TEMP 36.7; O2SAT 95
[2022-06-22 09:02] LABS: Chloride* 107 mmol/L (96-114); Sodium* 137 mmol/L (135-149)
[2022-06-22 09:03] LABS: Basophils Percent Auto 0.1 % (0.0-3.0); Eosinophils Percent Auto 0.6 % (0.0-7.0); Hematocrit 42.9 % (37.0-53.0); Hemoglobin* 14.3 gm/dL (13.5-17.5); Immature Granulocytes Pct Auto 0.1 %; Lymphocytes Percent Auto 12.5 % (20-44); Mean Corpuscular HGB Conc 33 gm/dL (32-36); Mean Corpuscular Hemoglobin 30 pg (26-34); Mean Corpuscular Volume 91 fL (80-100); Monocytes Percent Auto 7.1 % (0.0-11.0); Neutrophils Percent Auto 79.6 % (42.0-72.0); Platelet Count* 283 K/uL (140-440); RDW Coefficient of Variation % 13.4 % (11.5-15.5); Red Blood Count 4.73 m/uL (4.30-5.90); White Blood Count* 14.15 K/uL (4.50-11.00)
[2022-06-22 09:05] LABS: Carbon Dioxide* 25 mmol/L (20-32); Estimated Glomerular Filt Rate 85 ml/min
[2022-06-22 09:06] LABS: Blood Urea Nitrogen* 17 mg/dL (7-30); Calcium* 8.8 mg/dL (8.4-10.6); Glucose* 104 mg/dL (60-115)
[2022-06-22 09:08] LABS: Slide Review Reflex No
--- NOTE | 2022-06-22 12:18 | P.DS_ITS ---
DS: Providers Provider Date Seen: 06/22/22 Date of admission: 06/20/22 21:39 Primary care physician: Marcus Carreno MD Admitting Clinician: Coni Peña MD Attending Physician on discharge: Coni Peña MD DS: Summary Hospital Course Hospital Course: Patient was admitted to the hospital for cholecystitis and choledocholithiasis. He underwent a laparoscopic cholecystectomy with intraoperative cholangiogram. No evidence of any retained stones on the intraoperative imaging. On postop day 1 he did have down trending bilirubin and transaminases. At the time of discharge he was tolerating a regular diet, ambulating without difficulty, pain was well controlled and had return of bowel function. Patient was discharged to home with 2 week follow-up. Time Spent with Patient Time attestation: Total time spent providing and/or coordinating discharge services: Exam Narrative: Exam Narrative: General: Alert and oriented, no acute distress. Lying comfortably in bed. Abdomen: Soft, nondistended, appropriately tender over incision sites. Some mild ecchymoses around the umbilical incision. No concern for infection. Const: Vital Signs, click to edit/add: Vital Signs - 24 hr 06/21/22 13:11 06/21/22 13:40 06/21/22 13:15 Temperature 97.3 F L 96.8 F L 97.3 F L Pulse Rate 78 70 76 Pulse Rate [Left B rachial] Respiratory Rate 19 16 17 Blood Pressure 143/85 H 124/80 131/86 Blood Pressure [Ri ght Arm] Pulse Oximetry 95 94 94 Oxygen Delivery Me thod 06/21/22 13:20 06/21/22 13:25 06/21/22 13:30 Temperature 97.3 F L 97.3 F L 97.3 F L Pulse Rate 71 76 74 Pulse Rate [Left B rachial] Respiratory Rate 17 16 16 Blood Pressure 125/77 132/83 137/84 Blood Pressure [Ri ght Arm] Pulse Oximetry 94 97 94 Oxygen Delivery Me thod 06/21/22 13:35 06/21/22 14:41 06/21/22 13:48 Temperature 97.3 F L 96.8 F L Pulse Rate 71 67 70 Pulse Rate [Left B rachial] Respiratory Rate 17 14 Blood Pressure 124/81 Blood Pressure [Ri ght Arm] 127/90 H Pulse Oximetry 93 Oxygen Delivery Me thod Room Air 06/21/22 14:00 06/21/22 14:15 06/21/22 15:24 Temperature 96.8 F L 97 F L 96.5 F L Pulse Rate Pulse Rate [Left B rachial] 70 70 70 Respiratory Rate 14 16 16 Blood Pressure Blood Pressure [Ri ght Arm] 122/79 137/79 155/90 H Pulse Oximetry 96 96 Oxygen Delivery Me thod Room Air Room Air Room Air 06/21/22 14:30 06/21/22 14:45 06/21/22 15:15 Temperature 96.8 F L 96.5 F L 96.5 F L Pulse Rate Pulse Rate [Left B rachial] 71 71 70 Respiratory Rate 16 16 16 Blood Pressure Blood Pressure [Ri ght Arm] 115/90 H 149/94 H 155/90 H Pulse Oximetry 96 71 L 96 Oxygen Delivery Me thod Room Air Room Air Room Air 06/21/22 15:45 06/21/22 16:45 06/21/22 17:45 Temperature 96.8 F L 96.8 F L 97 F L Pulse Rate Pulse Rate [Left B rachial] 78 76 80 Respiratory Rate 16 16 18 Blood Pressure Blood Pressure [Ri ght Arm] 147/88 H 151/98 H 149/90 H Pulse Oximetry 97 97 97 Oxygen Delivery Me thod Room Air Room Air Room Air 06/21/22 18:39 06/21/22 19:30 06/21/22 23:35 Temperature 98.5 F 98.3 F 97.9 F Pulse Rate Pulse Rate [Left B rachial] 85 84 81 Respiratory Rate 18 18 18 Blood Pressure Blood Pressure [Ri ght Arm] 157/83 H 121/75 114/70 Pulse Oximetry 94 96 97 Oxygen Delivery Me thod Room Air Room Air Room Air 06/22/22 02:11 06/22/22 02:41 06/22/22 07:36 Temperature 98.3 F Pulse Rate 72 71 Pulse Rate [Left B rachial] 77 Respiratory Rate 18 Blood Pressure Blood Pressure [Ri ght Arm] 128/66 Pulse Oximetry 97 Oxygen Delivery Me thod Room Air 06/22/22 08:27 Temperature 98.1 F Pulse Rate Pulse Rate [Left B rachial] 85 Respiratory Rate 16 Blood Pressure Blood Pressure [Ri ght Arm] 107/65 Pulse Oximetry 95 Oxygen Delivery Me thod Room Air DS: Data Data Completed and Pending Labs on day of discharge: Labs from last 24 hours 06/22/22 06/22/22 05:47 05:47 WBC 14.15 H RBC 4.73 Hgb 14.3 Hct 42.9 MCV 91 MCH 30 MCHC 33 RDW Coeff of Rosibel 13.4 Plt Count 283 Neut % (Auto) 79.6 H Lymph % (Auto) 12.5 L Stanton % (Auto) 7.1 Eos % (Auto) 0.6 Baso % (Auto) 0.1 Neut # (Auto) 11.30 H Lymph # (Auto) 1.80 Stanton # (Auto) 1.00 H Eos # (Auto) 0.10 Baso # (Auto) 0.00 Abs Immat Gran (auto) 0.00 Imm/Tot Granulo (auto) 0.1 Sodium 137 Potassium 4.0 Chloride 107 Carbon Dioxide 25 BUN 17 Creatinine 1.0 Estimated Creat Clear 74.10 Estimated GFR 85 Glucose 104 Calcium 8.8 Total Bilirubin 2.5 H Direct Bilirubin 1.1 H AST 69 H ALT 191 H Alkaline Phosphatase 172 H Total Protein 6.1 Albumin 3.4 Discharge Plan Discharge Disposition: Home, Self-Care Date of Admission: 06/20/22 21:39 Attending Provider on Discharge: Valerie Brennan Primary Care Provider: Marcus Carreno Condition: Stable Anticipated Discharge Date/Time: 06/22/22 08:46 Discharge Medications: New senna 8.6 mg capsule 8.6 mg PO DAILY PRN (Reason: constipation) Qty: 90 0RF Rx Instructions: Please take stool softeners while on narcotic pain medication. Stop if having > 2 bowel movements per day. tramadol 50 mg tablet 50 mg PO Q4H PRN (Reason: pain) Qty: 10 0RF Continued epinephrine 0.3 mg/0.3 mL auto-injector 0.3 mg IM ONCE PRN Rx Instructions: as a single dose; may repeat once dextroamphetamine-amphetamine 20 mg tablet 30 mg PO QDAY Qty: 45 0RF Rx Instructions: One tab in the morning and half tab at noon Discharge Orders: Discharge Order (Routine); Ordered 06/22/22 Ordered By: Valerie Brennan Patient Education: Tramadol (By mouth), Senna (By mouth), General Anesthesia (DC), Laparoscopic Cholecystectomy (DC), Post-Operative Instructions: Laparoscopic Cholecystectomy Additional Instructions: Okay to shower starting tomorrow. Do not soak in a bath or swim for 2 weeks. Activity Level: Activity as Tolerated Activity Detail: Activity as tolerated. Avoid strenuous activity. No lifting greater than 20 lb for 2 weeks. Discharge Diet: Low Fat/Low Cholesterol Diet Detail: Continue on a low-fat diet for 2 weeks. Follow Up Appointments: Valerie Brennan MD [Staff Physician] - 07/06/22 1:30 pm Marcus Carreno MD [Primary Care Provider] - (Set up appointment as needed) Forms: [employer] Info Instructions
[2022-06-22 12:28] VITALS: BP 124/80; PULSE 71; RESP 16; TEMP 36.7
--- NOTE | 2022-06-22 12:29 | PC.NURSE ---
Discharge: Patient pleasant and cooperative. Up independently, ambulating frequently in halls. IV removed, vitals stable and WNL. Tolerating regular diet well, denies nausea. Pain well controlled, did not require PRN oxycodone this morning. Discharge instructions given and follow ups reviewed. Questions answered as needed. Patient discharged @ 1206, ambulated with staff present, friend picked up from entrance to bring home.
== END 2022-06-22 12:06 | disposition home or self-care (01) | DRG 263 ==
LOC: ED 20:28 → MEDSURG 21:38
PROVIDERS: Family Medicine; Surgery; Admitting Provider Family Medicine; Emergency Provider Family Medicine; PCP Family Medicine; Visit Provider Family Medicine
PROC: 0FT44ZZ Resection of Gallbladder, Percutaneous Endoscopic Approach (ICD-10-PCS; CPT 47563; principal; 2022-06-21 11:15)
DX: K80.65 Calculus of gallbladder and bile duct with chronic cholecystitis with obstruction (principal); M06.9 Rheumatoid arthritis, unspecified; G47.33 Obstructive sleep apnea (adult) (pediatric); E80.6 Other disorders of bilirubin metabolism; F98.8 Other specified behavioral and emotional disorders with onset usually occurring in childhood and adolescence; E78.5 Hyperlipidemia, unspecified
CPT/HCPCS: 00790; 36415; 51798; 74300; 76000; 76705; 80048; 80053; 80076; 82248; 82330; 82977; 83690; 83735; 85025; 85027; 85610; 86140; 87635; 88304; 93005; 99284; 99285; A9270; C9113; J0131; J0330; J1100; J1170; J1335; J2250; J2405; J2543; J2704; J3010; J3490; Q9967

== ENCOUNTER 2023-03-20 14:15 | Outpatient (CLI) | payer BC, SELFPAY | END 2023-03-20 14:16 | disposition home or self-care (01) | PROVIDERS: PCP Family Medicine; Visit Provider Family Medicine | DX: E78.5 Hyperlipidemia, unspecified (principal); M06.9 Rheumatoid arthritis, unspecified; Z12.5 Encounter for screening for malignant neoplasm of prostate; R53.83 Other fatigue | CPT/HCPCS: 80076; 84153 ==

== ENCOUNTER 2023-06-01 17:02 | Emergency (ER) | payer BC, SELFPAY ==
[2023-06-01] VITALS (19 sets, daily range): BP systolic 118–181; BP diastolic 85–100; PULSE 80–102; RESP 20; TEMP 37; O2SAT 95–99; BMI 28.9
--- NOTE | 2023-06-01 17:41 | CRLHL7_ITS ---
For Patients: As a result of the Cures Act, medical imaging exams and procedure reports are released immediately into your electronic medical record. You may view this report before your referring provider. If you have questions, please contact your health care provider. INDICATIONS: Shortness of breath. TECHNIQUE: Chest 2 view. COMPARISON: Chest radiograph 10/14/2020. FINDINGS: No pneumothorax or pleural effusion. Stable mild bibasilar scarring or atelectasis. Lungs are otherwise clear. Cardiac and mediastinal contours are within normal limits. Upper abdomen and osseous structures as imaged show no acute abnormality. IMPRESSION: No evidence of acute cardiopulmonary disease. Dictated by Sarmad Moser MD @ 06/01/2023 6:45:25 PM (Electronically Signed)
--- NOTE | 2023-06-01 17:56 | ED_ITS ---
HPI - General Adult General Chief complaint: Headache/Migraine Stated complaint: Blurry eyesight, headache, memory loss Time Seen by Provider: 06/01/23 17:30 Source: patient Mode of arrival: ambulatory Limitations: no limitations History of Present Illness HPI narrative: Patient is a 63-year-old male presenting today with fatigue. Patient states that he slept for the last 36 hours and still feels exhausted. He denies fevers or chills. He is not coughing. He states that he developed a headache approximately 1 hour ago. Is located across the top of the head. He denies any ringing in his ears or difficulty hearing. He does state that his vision becomes blurry on and off for the last 2 days. He denies any double vision. No slurred speech. No focal neurologic deficits. He has no chest or abdominal p ain. He denies any changes to his medications. Patient does have a history of depression and ADD, states that mental health is unchanged. Denies any increased sadness feeling blue or martinez. No thoughts of hurting himself. He denies tobacco, alcohol or any other drug use. Related Data Home Medications Medication Instructions Recorded Confirmed epinephrine 0.3 mg/0.3 mL 0.3 mg IM ONCE PRN 01/28/22 03/20/23 injection, auto-injector folic acid 1 mg tablet 1 mg PO QDAY 12/19/22 03/20/23 methotrexate sodium 2.5 mg tablet 2.5 mg PO QWEEK 12/19/22 03/20/23 Previous Rx's Medication Instructions Recorded sennosides 8.6 mg capsule (senna) 8.6 mg PO DAILY PRN constipation 06/22/22 #90 caps sertraline 50 mg tablet 50 mg PO QDAY #30 tabs 12/19/22 dextroamphetamine-amphetamine 20 See Rx Instructions PO QDAY #60 05/25/23 mg tablet tabs tramadol 50 mg tablet 50 mg PO Q4H PRN pain #30 tabs 05/25/23 Allergies Allergy/AdvReac Type Severity Reaction Status Date / Time bee venom protein (honey bee) Allergy Severe Hives Verified 03/20/23 13:52 Sulfa (Sulfonamide Allergy Mild Rash Verified 03/20/23 13:52 Antibiotics) Review of Systems Status of ROS: Reports: 10 or more systems reviewed and unremarkable except as noted in History and below PFSH PFSH Surgical History Status post cholecystectomy ?Z90.49 - Acquired absence of other specified parts of digestive tract (ICD- 10) Family History Other Colon cancer Social History Narrative: Nonsmoker, nondrinker. 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 Travels. . However, lives separately from his Coni. Three adult children. Highest level of school completed/degree received: some college, no degree Smoking Status: Never smoker Do you use any of these nicotine containing products: None Second hand tobacco smoke exposure: No How often do you have a drink containing alcohol: never How often do you have six or more drinks on one occasion: Never AUDIT-C Alcohol total score: 0 Non-prescribed substance use: denies use Caffeine: Yes (2 cans soda daily) service: No Exam Narrative: Exam Narrative: Well-nourished well-developed patient in no acute distress. Alert and oriented x3. Answers questions appropriately. Mood is appropriate, affect slightly flat. Thoughts are goal oriented and rational. No tangential or magical t hinking noted. Patient speaks in full sentences without needing to catch his breath. Speech is not slurred or pressured. HEENT: Normocephalic atraumatic. Pupils are equally round reactive to light. Extraocular muscles are intact. Conjunctivae are moist without any icterus noted. Moist mucous membranes. Posterior pharynx is normal. Neck is soft without any lymphadenopathy or thyromegaly. No masses are appreciated. Cardiovascular: Heart is regular rate and rhythm S1 and S2 are present without any murmurs. Lungs: Clear to auscultation bilaterally no wheezes rhonchi or rales are appr eciated. Patient takes deep breaths without any discomfort. Abdomen: Soft and nontender nondistended with normal bowel sounds. No guarding or rebound. No masses or organomegaly appreciated. Extremities: Bilateral lower extremities are without edema. Normal DP and PT pulses. Skin: Well perfused without any obvious rashes. Strength is 5/5 of the upper and lower extremities. Reflexes are 2+ and symmetric at the knees. Cranial nerves 3-12 are normal. [id number] is normal. There is no nystagmus either horizontally or vertically. Gait is normal. Const: Vital Signs, click to edit/add: Vital Signs - 24 hr 06/01/23 17:08 06/01/23 17:27 06/01/23 17:30 Temperature 98.6 F Pulse Rate 92 87 Pulse Rate [Pulse Oximeter] 91 Respiratory Rate 20 Blood Pressure Blood Pressure [Ri ght Upper Arm] 181/90 H Pulse Oximetry 99 96 96 Oxygen Delivery Me thod Room Air 06/01/23 17:32 06/01/23 17:45 06/01/23 18:00 Temperature Pulse Rate 92 93 94 Pulse Rate [Pulse Oximeter] Respiratory Rate Blood Pressure 153/92 H Blood Pressure [Ri ght Upper Arm] Pulse Oximetry 95 97 99 Oxygen Delivery Me thod 06/01/23 18:03 06/01/23 18:10 06/01/23 18:15 Temperature Pulse Rate 87 87 88 Pulse Rate [Pulse Oximeter] Respiratory Rate Blood Pressure 118/95 H 163/100 H Blood Pressure [Ri ght Upper Arm] Pulse Oximetry 98 96 97 Oxygen Delivery Me thod 06/01/23 18:32 06/01/23 18:33 06/01/23 18:34 Temperature Pulse Rate 82 80 Pulse Rate [Pulse Oximeter] Respiratory Rate Blood Pressure 155/85 H Blood Pressure [Ri ght Upper Arm] Pulse Oximetry 97 98 98 Oxygen Delivery Me thod 06/01/23 18:45 06/01/23 19:00 06/01/23 19:02 Temperature Pulse Rate 81 85 82 Pulse Rate [Pulse Oximeter] Respiratory Rate Blood Pressure 151/87 H Blood Pressure [Ri ght Upper Arm] Pulse Oximetry 96 96 96 Oxygen Delivery Me thod Course Course ED Course: IV is established and fluids were started. Labs were drawn. Chest x-ray, read by me, does not show any acute pathology. EKG, read by me, shows normal sinus rhythm with sinus arrhythmia, pulse 82. Lab work was unremarkable. urine drug screen positive for amphetamines, patient does take dextroamphetamine for ADD. He has received Toradol, Benadryl, Zofran and fluids while he was here and that did give him some relief of his headache. Vital Signs Vital signs: Initial Vital Signs Temperature 98.6 F 06/01/23 17:08 Temperature Source Temporal Artery Scan 06/01/23 17:08 Pulse Rate 91 06/01/23 17:08 Pulse Rhythm Regularly Irregular 06/01/23 17:08 Respiratory Rate 20 06/01/23 17:08 Blood Pressure 181/90 H 06/01/23 17:08 Blood Pressure Mean 120 H 06/01/23 17:08 Blood Pressure Position Supine 06/01/23 17:08 Pulse Oximetry 99 06/01/23 17:08 Oxygen Delivery Method Room Air 06/01/23 17:08 Vital Signs Temperature 98.6 F 06/01/23 17:08 Pulse Rate 91 06/01/23 17:08 Respiratory Rate 20 06/01/23 17:08 Blood Pressure 181/90 H 06/01/23 17:08 Pulse Oximetry 99 06/01/23 17:08 Oxygen Delivery Method Room Air 06/01/23 17:08 Temperature 98.6 F 06/01/23 17:08 Pulse Rate 82 06/01/23 19:02 Respiratory Rate 20 06/01/23 17:08 Blood Pressure 151/87 H 06/01/23 19:02 Pulse Oximetry 96 06/01/23 19:02 Oxygen Delivery Method Room Air 06/01/23 17:08 Medical Decision Making MDM Narrative Medical decision making narrative: 63-year-old male with increased fatigue unclear etiology. We discussed the viral infection versus stress versus poor sleep at night. At this time I would like for him to follow-up with primary care physician to have further discussion of next steps to take. Patient felt comfortable with this and had no other questions. Lab Data Lab results reviewed: Yes I reviewed the patient's lab results Labs: Lab Results 06/01/23 06/01/23 06/01/23 Range/Units 18:05 18:05 18:05 WBC 7.87 (4.50-11.00) K/uL RBC 5.02 (4.30-5.90) m/uL Hgb 15.2 (13.5-17.5) gm/dL Hct 44.6 (37.0-53.0) % MCV 89 (80-100) fL MCH 30 (26-34) pg MCHC 34 (32-36) gm/dL RDW Coeff of Rosibel 12.9 (11.5-15.5) % Plt Count 232 (140-440) K/uL Neut % (Auto) 65.8 (42.0-72.0) % Lymph % (Auto) 20.1 (20-44) % [place] % (Auto) 10.0 (0.0-11.0) % Eos % (Auto) 3.4 (0.0-7.0) % Baso % (Auto) 0.4 (0.0-3.0) % Neut # (Auto) 5.18 (1.7-7.0) K/uL Lymph # (Auto) 1.58 (0.90-2.90) K/uL [place] # (Auto) 0.80 (0.00-0.90) K/UL Eos # (Auto) 0.27 (0.00-0.50) K/uL Baso # (Auto) 0.03 (0.00-0.30) K/uL Abs Immat Gran (auto) 0.02 (0.00-0.30) K/uL Imm/Tot Granulo (auto) 0.3 % Sodium 138 (135-149) mmol/L Potassium 3.7 (3.6-5.1) mmol/L Chloride 101 (96-114) mmol/L Carbon Dioxide 24 (20-32) mmol/L Anion Gap 13 (7-15) mEq/L BUN 19 (7-30) mg/dL Creatinine 1.0 (0.5-1.5) mg/dL Estimated Creat Clear 73.15 Estimated GFR 85 ml/min Glucose 90 (60-115) mg/dL Lactate 1.3 (0.5-1.9) mmol/L Calcium 9.1 (8.4-10.6) mg/dL Total Bilirubin 0.7 Cancelled (0.1-1.5) mg/dL Direct Bilirubin 0.0 Cancelled (0.0-0.5) mg/dL AST 51 H (12-35) U/L ALT (4-50) U/L Alkaline Phosphatase (40-150) U/L Troponin I (0.01-0.04) ng/mL C-Reactive Protein (0.5-1.0) mg/dL Total Protein (6.0-8.3) g/dL Albumin (3.3-5.0) g/dL TSH (0.270-4.20) uIU/mL Urine Color (Yellow) Urine Appearance (Clear) Urine pH (5.0-8.5) Ur Specific [place] (1.000-1.030) Urine Protein (Negative) Urine Glucose (UA) (Negative) Urine Ketones (Negative) Urine Blood (Negative) Urine Nitrite (Negative) Urine Bilirubin (Negative) Urine Urobilinogen (0.2-1.0) Ur Leukocyte Esterase (Negative) Urine RBC (0-2) Urine WBC (0-5) Ur Squamous Epith Cells (None-Few) Urine Bacteria (None) Urine Opiates Screen (Negative) Ur Oxycodone Screen (Negative) Urine Methadone Screen (Negative) Ur Propoxyphene Screen (Negative) Ur Barbiturates Screen (Negative) U Tricyclic Antidepress (Negative) Ur Phencyclidine Scrn (Negative) Ur Amphetamines Screen (Negative) U Methamphetamines Scrn (Negative) U Benzodiazepines Scrn (Negative) Urine Cocaine Screen (Negative) U Marijuana (THC) Screen (Negative) Ur Drug Screen Comment SARS-CoV-2 (PCR) (Negative) Monoscreen (Negative) Influenza Type A (PCR) (Negative) Influenza Type B (PCR) (Negative) RSV (PCR) (Negative) 06/01/23 06/01/23 06/01/23 Range/Units 18:05 18:05 18:05 WBC (4.50-11.00) K/uL RBC (4.30-5.90) m/uL Hgb (13.5-17.5) gm/dL Hct (37.0-53.0) % MCV (80-100) fL MCH (26-34) pg MCHC (32-36) gm/dL RDW Coeff of Rosibel (11.5-15.5) % Plt Count (140-440) K/uL Neut % (Auto) (42.0-72.0) % Lymph % (Auto) (20-44) % [place] % (Auto) (0.0-11.0) % Eos % (Auto) (0.0-7.0) % Baso % (Auto) (0.0-3.0) % Neut # (Auto) (1.7-7.0) K/uL Lymph # (Auto) (0.90-2.90) K/uL [place] # (Auto) (0.00-0.90) K/UL Eos # (Auto) (0.00-0.50) K/uL Baso # (Auto) (0.00-0.30) K/uL Abs Immat Gran (auto) (0.00-0.30) K/uL Imm/Tot Granulo (auto) % Sodium (135-149) mmol/L Potassium (3.6-5.1) mmol/L Chloride (96-114) mmol/L Carbon Dioxide (20-32) mmol/L Anion Gap (7-15) mEq/L BUN (7-30) mg/dL Creatinine (0.5-1.5) mg/dL Estimated Creat Clear Estimated GFR ml/min Glucose (60-115) mg/dL Lactate (0.5-1.9) mmol/L Calcium (8.4-10.6) mg/dL Total Bilirubin (0.1-1.5) mg/dL Direct Bilirubin (0.0-0.5) mg/dL AST Cancelled (12-35) U/L ALT 45 Cancelled (4-50) U/L Alkaline Phosphatase 61 Cancelled (40-150) U/L Troponin I < 0.01 L (0.01-0.04) ng/mL C-Reactive Protein (0.5-1.0) mg/dL Total Protein (6.0-8.3) g/dL Albumin (3.3-5.0) g/dL TSH (0.270-4.20) uIU/mL Urine Color (Yellow) Urine Appearance (Clear) Urine pH (5.0-8.5) Ur Specific [place] (1.000-1.030) Urine Protein (Negative) Urine Glucose (UA) (Negative) Urine Ketones (Negative) Urine Blood (Negative) Urine Nitrite (Negative) Urine Bilirubin (Negative) Urine Urobilinogen (0.2-1.0) Ur Leukocyte Esterase (Negative) Urine RBC (0-2) Urine WBC (0-5) Ur Squamous Epith Cells (None-Few) Urine Bacteria (None) Urine Opiates Screen (Negative) Ur Oxycodone Screen (Negative) Urine Methadone Screen (Negative) Ur Propoxyphene Screen (Negative) Ur Barbiturates Screen (Negative) U Tricyclic Antidepress (Negative) Ur Phencyclidine Scrn (Negative) Ur Amphetamines Screen (Negative) U Methamphetamines Scrn (Negative) U Benzodiazepines Scrn (Negative) Urine Cocaine Screen (Negative) U Marijuana (THC) Screen (Negative) Ur Drug Screen Comment SARS-CoV-2 (PCR) (Negative) Monoscreen (Negative) Influenza Type A (PCR) (Negative) Influenza Type B (PCR) (Negative) RSV (PCR) (Negative) 06/01/23 06/01/23 06/01/23 Range/Units 18:05 18:05 18:05 WBC (4.50-11.00) K/uL RBC (4.30-5.90) m/uL Hgb (13.5-17.5) gm/dL Hct (37.0-53.0) % MCV (80-100) fL MCH (26-34) pg MCHC (32-36) gm/dL RDW Coeff of Rosibel (11.5-15.5) % Plt Count (140-440) K/uL Neut % (Auto) (42.0-72.0) % Lymph % (Auto) (20-44) % [place] % (Auto) (0.0-11.0) % Eos % (Auto) (0.0-7.0) % Baso % (Auto) (0.0-3.0) % Neut # (Auto) (1.7-7.0) K/uL Lymph # (Auto) (0.90-2.90) K/uL [place] # (Auto) (0.00-0.90) K/UL Eos # (Auto) (0.00-0.50) K/uL Baso # (Auto) (0.00-0.30) K/uL Abs Immat Gran (auto) (0.00-0.30) K/uL Imm/Tot Granulo (auto) % Sodium (135-149) mmol/L Potassium (3.6-5.1) mmol/L Chloride (96-114) mmol/L Carbon Dioxide (20-32) mmol/L Anion Gap (7-15) mEq/L BUN (7-30) mg/dL Creatinine (0.5-1.5) mg/dL Estimated Creat Clear Estimated GFR ml/min Glucose (60-115) mg/dL Lactate (0.5-1.9) mmol/L Calcium (8.4-10.6) mg/dL Total Bilirubin (0.1-1.5) mg/dL Direct Bilirubin (0.0-0.5) mg/dL AST (12-35) U/L ALT (4-50) U/L Alkaline Phosphatase (40-150) U/L Troponin I Cancelled (0.01-0.04) ng/mL C-Reactive Protein 0.8 (0.5-1.0) mg/dL Total Protein 6.9 Cancelled (6.0-8.3) g/dL Albumin 4.1 Cancelled (3.3-5.0) g/dL TSH 1.610 (0.270-4.20) uIU/mL Urine Color (Yellow) Urine Appearance (Clear) Urine pH (5.0-8.5) Ur Specific [place] (1.000-1.030) Urine Protein (Negative) Urine Glucose (UA) (Negative) Urine Ketones (Negative) Urine Blood (Negative) Urine Nitrite (Negative) Urine Bilirubin (Negative) Urine Urobilinogen (0.2-1.0) Ur Leukocyte Esterase (Negative) Urine RBC (0-2) Urine WBC (0-5) Ur Squamous Epith Cells (None-Few) Urine Bacteria (None) Urine Opiates Screen (Negative) Ur Oxycodone Screen (Negative) Urine Methadone Screen (Negative) Ur Propoxyphene Screen (Negative) Ur Barbiturates Screen (Negative) U Tricyclic Antidepress (Negative) Ur Phencyclidine Scrn (Negative) Ur Amphetamines Screen (Negative) U Methamphetamines Scrn (Negative) U Benzodiazepines Scrn (Negative) Urine Cocaine Screen (Negative) U Marijuana (THC) Screen (Negative) Ur Drug Screen Comment SARS-CoV-2 (PCR) Negative SARS-CoV-2 (Negative) Monoscreen Negative (Negative) Influenza Type A (PCR) Negative PCR FLU A (Negative) Influenza Type B (PCR) Negative PCR FLU B (Negative) RSV (PCR) Negative PCR RSV (Negative) 06/01/23 Range/Units 18:25 WBC (4.50-11.00) K/uL RBC (4.30-5.90) m/uL Hgb (13.5-17.5) gm/dL Hct (37.0-53.0) % MCV (80-100) fL MCH (26-34) pg MCHC (32-36) gm/dL RDW Coeff of Rosibel (11.5-15.5) % Plt Count (140-440) K/uL Neut % (Auto) (42.0-72.0) % Lymph % (Auto) (20-44) % [place] % (Auto) (0.0-11.0) % Eos % (Auto) (0.0-7.0) % Baso % (Auto) (0.0-3.0) % Neut # (Auto) (1.7-7.0) K/uL Lymph # (Auto) (0.90-2.90) K/uL [place] # (Auto) (0.00-0.90) K/UL Eos # (Auto) (0.00-0.50) K/uL Baso # (Auto) (0.00-0.30) K/uL Abs Immat Gran (auto) (0.00-0.30) K/uL Imm/Tot Granulo (auto) % Sodium (135-149) mmol/L Potassium (3.6-5.1) mmol/L Chloride (96-114) mmol/L Carbon Dioxide (20-32) mmol/L Anion Gap (7-15) mEq/L BUN (7-30) mg/dL Creatinine (0.5-1.5) mg/dL Estimated Creat Clear Estimated GFR ml/min Glucose (60-115) mg/dL Lactate (0.5-1.9) mmol/L Calcium (8.4-10.6) mg/dL Total Bilirubin (0.1-1.5) mg/dL Direct Bilirubin (0.0-0.5) mg/dL AST (12-35) U/L ALT (4-50) U/L Alkaline Phosphatase (40-150) U/L Troponin I (0.01-0.04) ng/mL C-Reactive Protein (0.5-1.0) mg/dL Total Protein (6.0-8.3) g/dL Albumin (3.3-5.0) g/dL TSH (0.270-4.20) uIU/mL Urine Color Yellow (Yellow) Urine Appearance Clear (Clear) Urine pH 7.0 (5.0-8.5) Ur Specific [place] 1.020 (1.000-1.030) Urine Protein Negative (Negative) Urine Glucose (UA) Negative (Negative) Urine Ketones Negative (Negative) Urine Blood Negative (Negative) Urine Nitrite Negative (Negative) Urine Bilirubin Negative (Negative) Urine Urobilinogen 0.2 (0.2-1.0) Ur Leukocyte Esterase Negative (Negative) Urine RBC 0-2 (0-2) Urine WBC 0-2 (0-5) Ur Squamous Epith Cells None (None-Few) Urine Bacteria None (None) Urine Opiates Screen Negative (Negative) Ur Oxycodone Screen Negative (Negative) Urine Methadone Screen Negative (Negative) Ur Propoxyphene Screen Negative (Negative) Ur Barbiturates Screen Negative (Negative) U Tricyclic Antidepress Negative (Negative) Ur Phencyclidine Scrn Negative (Negative) Ur Amphetamines Screen POSITIVE A (Negative) U Methamphetamines Scrn Negative (Negative) U Benzodiazepines Scrn Negative (Negative) Urine Cocaine Screen Negative (Negative) U Marijuana (THC) Screen Negative (Negative) Ur Drug Screen Comment See Note SARS-CoV-2 (PCR) (Negative) Monoscreen (Negative) Influenza Type A (PCR) (Negative) Influenza Type B (PCR) (Negative) RSV (PCR) (Negative) Imaging Data Chest x-ray: Attestation: I have reviewed the pertinent imaging results. Radiologist's impression: TECHNIQUE: Chest 2 view. COMPARISON: Chest radiograph 10/14/2020. FINDINGS: No pneumothorax or pleural effusion. Stable mild bibasilar scarring or atelectasis. Lungs are otherwise clear. Cardiac and mediastinal contours are within normal limits. Upper abdomen and osseous structures as imaged show no acute abnormality. IMPRESSION: No evidence of acute cardiopulmonary disease. ECG Data Attestation: I personally reviewed and interpreted this ECG as follows: Discharge Plan Discharge Clinical Impression: Fatigue Patient Disposition: Home, Self-Care Condition: Stable Additional Instructions: Take the opportunity over the next few days to rest as much as you need to. Make sure to stay well hydrated. Follow-up with your primary care provider in the next 3-7 days for a checkup. Prescriptions: No Action methotrexate sodium 2.5 mg tablet 2.5 mg PO QWEEK folic acid 1 mg tablet 1 mg PO QDAY sertraline 50 mg tablet 50 mg PO QDAY Qty: 30 5RF senna 8.6 mg capsule 8.6 mg PO DAILY PRN (Reason: constipation) Qty: 90 0RF Rx Instructions: Please take stool softeners while on narcotic pain medication. Stop if having > 2 bowel movements per day. epinephrine 0.3 mg/0.3 mL auto-injector 0.3 mg IM ONCE PRN Rx Instructions: as a single dose; may repeat once dextroamphetamine-amphetamine 20 mg tablet See Rx Instructions PO QDAY Qty: 60 0RF Rx Instructions: 20 mg q.a.m. and 20 mg q.noon orally every day tramadol 50 mg tablet 50 mg PO Q4H PRN (Reason: pain) Qty: 30 1RF Follow Up/Referrals: Marcus Carreno MD [Primary Care Provider] - Stand Alone Forms: xPeerient[employer] Info Instructions
[2023-06-01] MEDS: 0.9 % SODIUM CHLORIDE 1000 ml 1,000 ML IV (18:00)
[2023-06-01 18:26] LABS: Lactate* 1.3 mmol/L (0.5-1.9)
[2023-06-01 18:29] LABS: Basophils Absolute Auto 0.03 K/uL (0.00-0.30); Basophils Percent Auto 0.4 % (0.0-3.0); Eosinophils Absolute Auto 0.27 K/uL (0.00-0.50); Eosinophils Percent Auto 3.4 % (0.0-7.0); Hematocrit 44.6 % (37.0-53.0); Hemoglobin* 15.2 gm/dL (13.5-17.5); Immature Granulocytes Abs Auto 0.02 K/uL (0.00-0.30); Immature Granulocytes Pct Auto 0.3 %; Lymphocytes Absolute Auto 1.58 K/uL (0.90-2.90); Lymphocytes Percent Auto 20.1 % (20-44); Mean Corpuscular HGB Conc 34 gm/dL (32-36); Mean Corpuscular Hemoglobin 30 pg (26-34); Mean Corpuscular Volume 89 fL (80-100); Neutrophils Absolute Auto 5.18 K/uL (1.7-7.0); Neutrophils Percent Auto 65.8 % (42.0-72.0); Platelet Count* 232 K/uL (140-440); RDW Coefficient of Variation % 12.9 % (11.5-15.5); Red Blood Count 5.02 m/uL (4.30-5.90); White Blood Count* 7.87 K/uL (4.50-11.00)
[2023-06-01] MEDS: diphenhydrAMINE 50 MG/ML inj 25 MG IVP (18:36)
[2023-06-01] MEDS: KETOROLAC 30 MG/ML inj IVP (18:36)
[2023-06-01] MEDS: ONDANSETRON 2 MG/ML inj 4 MG IVP (18:36)
[2023-06-01 18:43] LABS: Amphetamine Screen Urine POSITIVE (Negative); Barbiturate Screen Urine Negative (Negative); Benzodiazepines Screen Urine Negative (Negative); Cannabinoid Screen Urine Negative (Negative); Cocaine Screen Urine Negative (Negative); Methadone Screen Urine Negative (Negative); Methamphetamines Screen Urine Negative (Negative); Opiate Screen Urine Negative (Negative); Oxycodone Screen Urine Negative (Negative); Phencyclidine Screen Urine Negative (Negative); Tricyclic Antidepressant Urine Negative (Negative)
[2023-06-01 18:49] LABS: Albumin* 4.1 g/dL (3.3-5.0); Chloride* 101 mmol/L (96-114); Sodium* 138 mmol/L (135-149)
[2023-06-01 18:50] LABS: Potassium* 3.7 mmol/L (3.6-5.1)
[2023-06-01 18:51] LABS: Est. Creatinine Clearance* 73.15; Estimated Glomerular Filt Rate 85 ml/min
[2023-06-01 18:52] LABS: Alanine Aminotransferase* 45 U/L (4-50); Alkaline Phosphatase* 61 U/L (40-150); Anion Gap 13 mEq/L (7-15); Aspartate Amino Transferase* 51 U/L (12-35); Bilirubin Total* 0.7 mg/dL (0.1-1.5); Blood Urea Nitrogen* 19 mg/dL (7-30); Carbon Dioxide* 24 mmol/L (20-32); Glucose* 90 mg/dL (60-115); Total Protein* 6.9 g/dL (6.0-8.3)
[2023-06-01 18:53] LABS: Calcium* 9.1 mg/dL (8.4-10.6)
[2023-06-01 18:55] LABS: C Reactive Protein* 0.8 mg/dL (0.5-1.0)
[2023-06-01 19:02] LABS: Slide Review Reflex No
[2023-06-01 19:04] LABS: Mono Screen* Negative (Negative)
[2023-06-01 19:05] LABS: PCR FLU A Negative PCR FLU A (Negative); PCR FLU B Negative PCR FLU B (Negative); PCR RSV Negative PCR RSV (Negative)
[2023-06-01 19:14] LABS: Appearance Urine Clear (Clear); Bilirubin Urine Negative (Negative); Blood Urine Negative (Negative); Color Urine Yellow (Yellow); Glucose Urine Negative (Negative); Ketones Urine Negative (Negative); Leukocyte Esterase Urine Negative (Negative); Nitrite Urine Negative (Negative); Protein Urine Negative (Negative); Urobilinogen Urine 0.2 (0.2-1.0)
[2023-06-01 19:14] LABS: SARS PCR* Negative SARS-CoV-2 (Negative)
[2023-06-01 19:15] LABS: RBC Urine 0-2 (0-2); WBC Urine 0-2 (0-5)
[2023-06-01 19:42] LABS: Troponin I* < 0.01 ng/mL (0.01-0.04)
== END 2023-06-01 20:06 | disposition home or self-care (01) ==
PROVIDERS: Emergency Provider Family Medicine; PCP Family Medicine
DX: R53.83 Other fatigue (principal)
CPT/HCPCS: 36415; 71046; 80048; 80076; 80306; 81001; 83605; 84443; 84484; 85025; 86140; 86308; 87086; 87631; 93005; 94761; 96361; 96374; 96375; 99284; 99285; J1200; J1885; J2405; J7030

== ENCOUNTER 2024-01-12 09:56 | Outpatient (CLI) | payer BC, SELFPAY | END 2024-01-12 09:57 | disposition home or self-care (01) | PROVIDERS: PCP Family Medicine; Visit Provider Family Medicine | DX: R63.4 Abnormal weight loss (principal); Z80.42 Family history of malignant neoplasm of prostate; Z12.5 Encounter for screening for malignant neoplasm of prostate; Z13.29 Encounter for screening for other suspected endocrine disorder | CPT/HCPCS: 80048; 84443; G0103 ==

== ENCOUNTER 2024-12-29 12:26 | Outpatient (CLI) | payer BC, SELFPAY | END 2024-12-29 12:27 | disposition home or self-care (01) | LOC: AMB 01-01 16:09 | PROVIDERS: PCP Family Medicine; Visit Provider Family Medicine | DX: R41.82 Altered mental status, unspecified (principal); R29.810 Facial weakness; R47.81 Slurred speech | CPT/HCPCS: A0425; A0427 ==

== ENCOUNTER 2024-12-29 12:50 | Observation (INO) | payer BC, SELFPAY ==
--- OUTSIDE RECORDS SUMMARY | 2024-12-27 04:30 | XMS_ITS | Continuity of Care Document ---
Author Organization [facility] Address [address] [place] [address] Phone Care Team Providers Care Extruding Department Supervisor Name Role Phone Pierre Webb DO Unavailable Unavailable Allergies, Adverse Reactions, Alerts Substance Reaction Status Criticality Sulfa (Sulfonamide Antibiotics) Active No Information Medications Medication Instructions Dosage Effective Dates (start - stop) Status Comments methotrexate sodium 2.5 mg tablet TAKE 8 TABLETS BY MOUTH A SINGLE DOSE ONCE WEEKLY - Active prednisone 2.5 mg tablet take 1 tablet by oral route as needed for flare - Active Take in the morning with food prednisone 5 mg tablet 15 mg per day for 1 week, 10 mg per day for 1 week, 5 mg per day for 1 week then stop - Active Take in the morning with food ADDERALL (unknown strength) 30 mg in the AM and PM Not Available - Active Plaquenil 200 mg tablet take 2 tablet by oral route every day 400 MG - Active Simponi ARIA 12.5 mg/mL intravenous solution infuse (2MG/KG) by intravenous route every 8 weeks - Active Procedures Procedure Date Simponi Aria (golimumab) Simponi Aria (golimumab) Chemo, Iv Infusion, 1 Hr Normal Saline Solution Infus Simponi Aria (golimumab) Simponi Aria (golimumab) Chemo, Iv Infusion, 1 Hr Normal Saline Solution Infus Routine Venipuncture Assay Of Serum Albumin Assay Of Creatinine Transferase (Ast) (Sgot) Alanine Amino (Alt) (Sgpt) Complete Cbc WAuto Diff Wbc Simponi Aria (golimumab) Chemo, Iv Infusion, 1 Hr Normal Saline Solution Infus Office/Outpatient Visit, Est Simponi Aria (golimumab) Chemo, Iv Infusion, 1 Hr Normal Saline Solution Infus Routine Venipuncture Assay Of Serum Albumin Assay Of Creatinine Transferase (Ast) (Sgot) Alanine Amino (Alt) (Sgpt) Complete Cbc WAuto Diff Wbc Simponi Aria (golimumab) Chemo, Iv Infusion, 1 Hr Normal Saline Solution Infus Simponi Aria (golimumab) Chemo, Iv Infusion, 1 Hr Normal Saline Solution Infus Simponi Aria (golimumab) Chemo, Iv Infusion, 1 Hr Normal Saline Solution Infus Simponi Aria (golimumab) Chemo, Iv Infusion, 1 Hr Normal Saline Solution Infus Office/Outpatient Visit, Est Routine Venipuncture Assay Of Serum Albumin Assay Of Creatinine Transferase (Ast) (Sgot) Alanine Amino (Alt) (Sgpt) Complete Cbc WAuto Diff Wbc Simponi Aria (golimumab) Chemo, Iv Infusion, 1 Hr Normal Saline Solution Infus Simponi Aria (golimumab) Chemo, Iv Infusion, 1 Hr Normal Saline Solution Infus Drain/Inject, Joint/Bursa, Intermediate Methylprednisolone 80 Mg Inj Office/Outpatient Visit, Est Surgical Trays Simponi Aria (golimumab) Chemo, Iv Infusion, 1 Hr Normal Saline Solution Infus Simponi Aria (golimumab) Chemo, Iv Infusion, 1 Hr Normal Saline Solution Infus Simponi Aria (golimumab) Chemo, Iv Infusion, 1 Hr Normal Saline Solution Infus Simponi Aria (golimumab) Chemo, Iv Infusion, 1 Hr Normal Saline Solution Infus Office/Outpatient Visit, Est Routine Venipuncture Assay Of Serum Albumin Assay Of Creatinine Transferase (Ast) (Sgot) Alanine Amino (Alt) (Sgpt) Complete Cbc WAuto Diff Wbc Office/Outpatient Visit, Est Routine Venipuncture Rbc Sed Rate, Nonautomated Assay Of Serum Albumin Assay Of Creatinine Transferase (Ast) (Sgot) Alanine Amino (Alt) (Sgpt) CReactive Protein Complete Cbc WAuto Diff Wbc Office/Outpatient Visit, Est Routine Venipuncture Assay Of Serum Albumin Assay Of Creatinine Transferase (Ast) (Sgot) Alanine Amino (Alt) (Sgpt) Complete Cbc WAuto Diff Wbc Avsola Infliximab Chemo, Iv Infusion, 1 Hr Chemo, Iv Infusion, Addl Hr Normal Saline Solution Infus Solumedrol Up To 125mg Solumedrol Up To 40mg Benadryl Up To 50mg Tx/Pro/Dx Inj New Drug Addon Avsola Infliximab Chemo, Iv Infusion, 1 Hr Chemo, Iv Infusion, Addl Hr Normal Saline Solution Infus Office/Outpatient Visit, Est Routine Venipuncture Specimen Handling Tb Test, Cell Immun Measure Routine Venipuncture Assay Of Serum Albumin Assay Of Creatinine Transferase (Ast) (Sgot) Alanine Amino (Alt) (Sgpt) Complete Cbc WAuto Diff Wbc Routine Venipuncture Assay Of Serum Albumin Assay Of Creatinine Transferase (Ast) (Sgot) Alanine Amino (Alt) (Sgpt) Complete Cbc WAuto Diff Wbc Office/Outpatient Visit, Est Routine Venipuncture Specimen Handling Rbc Sed Rate, Nonautomated CReactive Protein Remicade Infliximab Chemo, Iv Infusion, 1 Hr Chemo, Iv Infusion, Addl Hr Normal Saline Solution Infus Remicade Infliximab Chemo, Iv Infusion, 1 Hr Chemo, Iv Infusion, Addl Hr Normal Saline Solution Infus Remicade Infliximab Chemo, Iv Infusion, 1 Hr Chemo, Iv Infusion, Addl Hr Normal Saline Solution Infus Office/Outpatient Visit, Est Routine Venipuncture Rbc Sed Rate, Nonautomated Assay Of Serum Albumin Assay Of Creatinine Transferase (Ast) (Sgot) Alanine Amino (Alt) (Sgpt) CReactive Protein Complete Cbc WAuto Diff Wbc Remicade Infliximab Chemo, Iv Infusion, 1 Hr Chemo, Iv Infusion, Addl Hr Normal Saline Solution Infus Office/Outpatient Visit, Est Routine Venipuncture Assay Of Serum Albumin Assay Of Creatinine Transferase (Ast) (Sgot) Alanine Amino (Alt) (Sgpt) Complete Cbc, Automated Remicade Infliximab Chemo, Iv Infusion, 1 Hr Chemo, Iv Infusion, Addl Hr Normal Saline Solution Infus Routine Venipuncture Complete Cbc WAuto Diff Wbc Assay Of Serum Albumin Assay Of Creatinine Transferase (Ast) (Sgot) Alanine Amino (Alt) (Sgpt) Remicade Infliximab Chemo, Iv Infusion, 1 Hr Chemo, Iv Infusion, Addl Hr Normal Saline Solution Infus Remicade Infliximab Chemo, Iv Infusion, 1 Hr Chemo, Iv Infusion, Addl Hr Normal Saline Solution Infus Office/Outpatient Visit, Est Routine Venipuncture Complete Cbc WAuto Diff Wbc Rbc Sed Rate, Nonautomated CReactive Protein Assay Of Serum Albumin Assay Of Creatinine Transferase (Ast) (Sgot) Alanine Amino (Alt) (Sgpt) Remicade Infliximab Chemo, Iv Infusion, 1 Hr Chemo, Iv Infusion, Addl Hr Normal Saline Solution Infus Remicade Infliximab Chemo, Iv Infusion, 1 Hr Chemo, Iv Infusion, Addl Hr Normal Saline Solution Infus Routine Venipuncture Complete Cbc WAuto Diff Wbc Rbc Sed Rate, Nonautomated CReactive Protein Assay Of Serum Albumin Assay Of Creatinine Transferase (Ast) (Sgot) Alanine Amino (Alt) (Sgpt) Remicade Infliximab Chemo, Iv Infusion, 1 Hr Chemo, Iv Infusion, Addl Hr Normal Saline Solution Infus Remicade Infliximab Chemo, Iv Infusion, 1 Hr Chemo, Iv Infusion, Addl Hr Normal Saline Solution Infus Remicade Infliximab Chemo, Iv Infusion, 1 Hr Chemo, Iv Infusion, Addl Hr Normal Saline Solution Infus Office/Outpatient Visit, Est Remicade Infliximab Chemo, Iv Infusion, 1 Hr Chemo, Iv Infusion, Addl Hr Normal Saline Solution Infus Remicade Infliximab Chemo, Iv Infusion, 1 Hr Chemo, Iv Infusion, Addl Hr Normal Saline Solution Infus Remicade Infliximab Chemo, Iv Infusion, 1 Hr Chemo, Iv Infusion, Addl Hr Normal Saline Solution Infus Remicade Infliximab Chemo, Iv Infusion, 1 Hr Chemo, Iv Infusion, Addl Hr Normal Saline Solution Infus Remicade Infliximab Chemo, Iv Infusion, 1 Hr Chemo, Iv Infusion, Addl Hr Normal Saline Solution Infus Office/Outpatient Visit, Est Routine Venipuncture Complete Cbc WAuto Diff Wbc Rbc Sed Rate, Nonautomated CReactive Protein Assay Of Serum Albumin Assay Of Creatinine Transferase (Ast) (Sgot) Alanine Amino (Alt) (Sgpt) Routine Venipuncture Complete Cbc WAuto Diff Wbc Assay Of Serum Albumin Assay Of Creatinine Transferase (Ast) (Sgot) Alanine Amino (Alt) (Sgpt) Remicade Infliximab Chemo, Iv Infusion, 1 Hr Chemo, Iv Infusion, Addl Hr Normal Saline Solution Infus Remicade Infliximab Chemo, Iv Infusion, 1 Hr Chemo, Iv Infusion, Addl Hr Normal Saline Solution Infus Remicade Infliximab Chemo, Iv Infusion, 1 Hr Chemo, Iv Infusion, Addl Hr Normal Saline Solution Infus Office/Outpatient Visit, Est Routine Venipuncture Complete Cbc WAuto Diff Wbc Rbc Sed Rate, Nonautomated CReactive Protein Assay Of Serum Albumin Assay Of Creatinine Transferase (Ast) (Sgot) Alanine Amino (Alt) (Sgpt) Office/Outpatient Visit, Est Routine Venipuncture Specimen Handling Rbc Sed Rate, Nonautomated Assay Of Serum Albumin Assay Of Creatinine Transferase (Ast) (Sgot) Alanine Amino (Alt) (Sgpt) CReactive Protein Tb Test, Cell Immun Measure Office/Outpatient Visit, Est Routine Venipuncture Complete Cbc WAuto Diff Wbc Rbc Sed Rate, Nonautomated CReactive Protein Assay Of Serum Albumin Assay Of Creatinine Transferase (Ast) (Sgot) Alanine Amino (Alt) (Sgpt) Office/Outpatient Visit, Est Routine Venipuncture Complete Cbc WAuto Diff Wbc Rbc Sed Rate, Nonautomated CReactive Protein Assay Of Serum Albumin Bilirubin, Total Assay Of Creatinine Lactate (Ld) (Ldh) Enzyme Assay Alkaline Phosphatase Assay Of Protein, Any Source Transferase (Ast) (Sgot) Alanine Amino (Alt) (Sgpt) Office/Outpatient Visit, Est Routine Venipuncture Complete Cbc WAuto Diff Wbc Rbc Sed Rate, Nonautomated CReactive Protein Assay Of Serum Albumin Bilirubin, Total Assay Of Creatinine Lactate (Ld) (Ldh) Enzyme Assay Alkaline Phosphatase Assay Of Protein, Any Source Transferase (Ast) (Sgot) Alanine Amino (Alt) (Sgpt) Office/Outpatient Visit, Est Routine Venipuncture Specimen Handling Complete Cbc WAuto Diff Wbc Rbc Sed Rate, Nonautomated CReactive Protein Assay Of Serum Albumin Bilirubin, Total Assay Of Creatinine Lactate (Ld) (Ldh) Enzyme Assay Alkaline Phosphatase Assay Of Protein, Any Source Transferase (Ast) (Sgot) Alanine Amino (Alt) (Sgpt) Office/Outpatient Visit, Est Routine Venipuncture Complete Cbc WAuto Diff Wbc Rbc Sed Rate, Nonautomated CReactive Protein Assay Of Serum Albumin Assay Of Creatinine Transferase (Ast) (Sgot) Alanine Amino (Alt) (Sgpt) Office/Outpatient Visit, Est Routine Venipuncture Complete Cbc WAuto Diff Wbc Rbc Sed Rate, Nonautomated CReactive Protein Assay Of Serum Albumin Assay Of Creatinine Transferase (Ast) (Sgot) Alanine Amino (Alt) (Sgpt) Office/Outpatient Visit, Est Routine Venipuncture Complete Cbc WAuto Diff Wbc Rbc Sed Rate, Nonautomated CReactive Protein Assay Of Serum Albumin Assay Of Creatinine Transferase (Ast) (Sgot) Alanine Amino (Alt) (Sgpt) Office/Outpatient Visit, Est XRay Exam Of Hand 3v Routine Venipuncture CReactive Protein Complete Cbc WAuto Diff Wbc Rbc Sed Rate, Nonautomated Assay Of Serum Albumin Assay Of Creatinine Transferase Ast Sgot Alanine Amino Alt Sgpt Office/Outpatient Visit, Est Routine Venipuncture CReactive Protein Complete Cbc WAuto Diff Wbc Rbc Sed Rate, Nonautomated Assay Of Serum Albumin Assay Of Creatinine Transferase Ast Sgot Alanine Amino Alt Sgpt Office/Outpatient Visit, Est Routine Venipuncture Specimen Handling CReactive Protein Complete Cbc WAuto Diff Wbc Rbc Sed Rate, Nonautomated Office/Outpatient Visit, Est Routine Venipuncture Complete Cbc WAuto Diff Wbc Assay Of Serum Albumin Assay Of Creatinine Transferase Ast Sgot Alanine Amino Alt Sgpt Office/Outpatient Visit, Est Routine Venipuncture CReactive Protein Complete Cbc WAuto Diff Wbc Rbc Sed Rate, Nonautomated Assay Of Serum Albumin Assay Of Creatinine Transferase Ast Sgot Alanine Amino Alt Sgpt Advance Directives Directive Yes / No Effective Date File Name No Information Encounters Encounter Description Practice Location Reason(s) For Visit Diagnoses Date Provider Providers Copied on Encounter [facility] , [address], [place], [place], [address], [place] tel:[phone] [facility] , No Information Jon Jay. [facility] [address], [place], [place], [address], [place]. tel:[phone] Referring Provider: Pierre Deleon, [facility] [address], [place], [address]. tel:[phone] [facility] , [address], [place], [address], [place] tel:[phone] [facility] , No Information 5 Sarah Bethtyra Zoyachet Seymour. [address], [place], [address], [place]. tel:[phone] Referring Provider: Dawn Hook, [address], [place], [address]. [phone] [facility] , [address], [place], [address], [place] [phone] [facility] , No Information 4 Sarah Bethtyra Zoya Dawn. [address], [address], [place], [address], [place]. [phone] Referring Provider: Dawn Hook, [address], [place], [address]. [phone] [facility] , [address], [place], [address], [place] tel:[phone] [facility] , Rheu arthritis w rheu factor mult site w/o org/sys involvOther longterm (current) drug therapy 4 Jon Jay. [facility] [address], [place], [address], [place]. tel:[phone] Referring Provider: Pierre Deleon, [facility] [address], [place], [address]. tel:[phone] [facility] , [address], [place], [address], [place] tel:[phone] [facility] , No Information 4 Jon Jay. [facility] [address], [place], [address], [place]. tel:[phone] Referring Provider: Pierre Deleon, [facility] [address], [place], [address]. tel:[phone] [facility] , [address], [place], [address], [place] tel:[phone] [facility] , No Information 4 Jon Jay. [facility] [address], [place], [address], [place]. tel:[phone] Office/Outpa tient Visit, Est [facility] , [address], [place], [address], [place] tel:[phone] [facility] , Rheumatoid arthritis (chief complaint)Mo nitor Chronic High Risk Meds (chief complaint) Rheumatoid arthritis with rheumatoid factor of multiple sites without organ or systems involvementP ain in left wristOther longterm (current) drug therapy 4 Jon Jay. [facility] [address], [place], [address], [place]. tel:[phone] Referring Provider: Pierre Deleon, [facility] [address], [place], [address]. tel:[phone] [facility] , [address], [place], [address], [place] tel:[phone] [facility] , No Information 4 Fátima Seymour. [address], [address], [place], [address], [place]. tel:[phone] Referring Provider: Dawn Hook, [address], [place], [address]. 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 [facility] [address], [place], [address], [place]. tel:[phone] Referring Provider: Pierre Deleon, [facility] [address], [place], [address]. tel:[phone] [facility] , [address], [place], [address], [place] tel:[phone] [facility] , No Information 4 Jon Jay. [facility] [address], [place], [address], [place]. tel:[phone] Referring Provider: Pierre Deleon, [facility] [address], [place], [address]. tel:[phone] [facility] , [address], [place], [address], [place] tel:[phone] [facility] , No Information 3 Fátima Seymour. [address], [address], [place], [address], [place]. tel:[phone] Referring Provider: Dawn Hook, [address], [place], [address]. tel:[phone] [facility] , [address], [place], [address], [place] tel:[phone] [facility] , No Information 3 Jon Jay. [facility] [address], [place], [address], [place]. tel:[phone] Referring Provider: Pierre Deleon, [facility] [address], [place], [address]. tel:[phone] [facility] , [address], [place], [address], [place] tel:[phone] [facility] , No Information 3 Fátima Pierre. [facility] [address], [place], [address], [place]. tel:[phone] Referring Provider: Gabby Aquino, [facility] [address], [place], [address]. tel:[phone] [facility] , [address], [place], [address], [place] tel:[phone] [facility] , No Information 3 Jon Jay. [facility] [address], [place], [address], [place]. tel:[phone] Office/Outpa tient Visit, Est [facility] , [address], [place], [address], [place] tel:[phone] [facility] , Rheumatoid arthritis (chief complaint)Mo nitor Chronic High Risk Meds (chief complaint) Rheumatoid arthritis with rheumatoid factor of multiple sites without organ or systems involvementP ain in left wristOther longterm (current) drug therapy 3 Jon Jay. [facility] [address], [place], [address], [place]. tel:[phone] Referring Provider: Pierre Deleon, [facility] [address], [place], [address]. tel:[phone] [facility] , [address], [place], [address], [place] tel:[phone] [facility] , No Information 3 Jon Jay. [facility] [address], [place], [address], [place]. tel:[phone] Referring Provider: Pierre Deleon, [facility] [address], [place], [address]. tel:[phone] [facility] , [address], [place], [address], [place] tel:[phone] [facility] , No Information 3 Waleska Atkins. [facility] [address], [place], [address], [place]. tel:[phone] Referring Provider: Wilbert Amato, [facility] [address], [place], [address]. tel:[phone] Office/Outpa tient Visit, Est [facility] , [address], [place], [address], [place] tel:[phone] [facility] , Rheumatoid arthritis (chief complaint)Mo nitor Chronic High Risk Meds (chief complaint) Rheumatoid arthritis with rheumatoid factor of multiple sites without organ or systems involvementO ther local company intermodal truck driver (current) drug therapyPain in left wrist 3 Jon Jay. [facility] [address], [place], [address], [place]. tel:[phone] Referring Provider: Pierre Deleon, [facility] [address], [place], [address]. tel:[phone] [facility] , [address], [place], [address], [place] tel:[phone] [facility] , No Information 2 Jon Jay. [facility] [address], [place], [address], [place]. tel:[phone] Referring Provider: Pierre Deleon, [facility] [address], [place], [address]. tel:[phone] [facility] , [address], [place], [address], [place] tel:[phone] [facility] , No Information 2 Jon Jay. [facility] [address], [place], [address], [place]. tel:[phone] Referring Provider: Pierre Deleon, [facility] [address], [place], [address]. tel:[phone] [facility] , [address], [place], [address], [place] tel:[phone] [facility] , No Information 2 Jon Jay. [facility] [address], [place], [address], [place]. tel:[phone] Referring Provider: Pierre Deleon, [facility] [address], [place], [address]. tel:[phone] [facility] , [address], [place], [address], [place] tel:[phone] [facility] , No Information 2 Waleska Atkins. [facility] [address], [place], [address], [place]. tel:[phone] Referring Provider: Wilbert Amato, [facility] [address], [place], [address]. tel:[phone] Office/Outpa tient Visit, Est [facility] , [address], [place], [address], [place] tel:[phone] [facility] , Rheumatoid arthritis (chief complaint)Mo nitor Chronic High Risk Meds (chief complaint) Rheumatoid arthritis with rheumatoid factor of multiple sites without organ or systems involvementO ther longterm (current) drug therapy 2 Jon Jay. [facility] [address], [place], [address], [place]. tel:[phone] Referring Provider: Pierre Deleon, [facility] [address], [place], [address]. 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 [facility] [address], [place], [address], [place]. tel:[phone] Referring Provider: Pierre Deleon, [facility] [address], [place], [address]. tel:[phone] Office/Outpa tient Visit, Est [facility] , [address], [place], [address], [place] tel:[phone] [facility] , Rheumatoid arthritis (chief complaint)Mo nitor Chronic High Risk Meds (chief complaint) Rheumatoid arthritis with rheumatoid factor of multiple sites without organ or systems involvementO ther local company intermodal truck driver (current) drug therapy 1 Jon Jay. [facility] [address], [place], [address], [place]. tel:[phone] Referring Provider: Pierre Deleon, [facility] [address], [place], [address]. tel:[phone] [facility] , [address], [place], [address], [place] tel:[phone] [facility] , No Information 1 Jon Jay. [facility] [address], [place], [address], [place]. tel:[phone] Referring Provider: Pierre Deleon, [facility] [address], [place], [address]. tel:[phone] [facility] , [address], [place], [address], [place] tel:[phone] [facility] [facility] , No Information 1 Mahi Hunter. [facility] [address], [place], [address], [place]. tel:[phone] Referring Provider: Dale Manuel, [facility] [address], [place], [address]. tel:[phone] [facility] , [address], [place], [address], [place] tel:[phone] [facility] , No Information 1 Tam Anglin. [facility] [address], [place], [address], [place]. tel:[phone] Referring Provider: Derrek Aquino, [facility] [address], [place], [address]. tel:[phone] Office/Outpa tient Visit, Est [facility] , [address], [place], [address], [place] tel:[phone] [facility] , Rheumatoid arthritis (chief complaint)Mo nitor Chronic High Risk Meds (chief complaint) Rheumatoid arthritis with rheumatoid factor of multiple sites without organ or systems involvementO ther local company intermodal truck driver (current) drug therapy 1 Jon Jay. [facility] [address], [place], [address], [place]. tel:[phone] Referring Provider: Pierre Deleon, [facility] [address], [place], [address]. tel:[phone] [facility] , [address], [place], [address], [place] tel:[phone] [facility] , No Information 1 Jon Jay. [facility] [address], [place], [address], [place]. tel:[phone] Referring Provider: Pierre Deleon, [facility] [address], [place], [address]. tel:[phone] [facility] , [address], [place], [address], [place] tel:[phone] [facility] , No Information 0 Jon Jay. [facility] [address], [place], [address], [place]. tel:[phone] Referring Provider: Pierre Deleon, [facility] [address], [place], [address]. tel:[phone] Office/Outpa tient Visit, Est [facility] , [address], [place], [address], [place] tel:[phone] [facility] , Rheumatoid arthritis with rheumatoid factor of multiple sites without organ or systems involvementO ther local company intermodal truck driver (current) drug therapy 0 Jon Jay. [facility] [address], [place], [address], [place]. tel:[phone] Referring Provider: Pierre Deleon, [facility] [address], [place], [address]. tel:[phone] [facility] , [address], [place], [address], [place] tel:[phone] [facility] , No Information 0 0 Waleska Atkins. [facility] [address], [place], [address], [place]. tel:[phone] Referring Provider: Wilbert Amato, [facility] [address], [place], [address]. tel:[phone] [facility] , [address], [place], [address], [place] tel:[phone] [facility] , No Information Fátima Pierre. [facility] [address], [place], [address], [place]. tel:[phone] Referring Provider: Gabby Shine A, [facility] [address], [place], [address]. tel:[phone] [facility] , [address], [place], [address], [place] tel:[phone] [facility] , No Information 9 Alan Millan. [facility] [address], [place], [address], [place]. tel:[phone] Referring Provider: Monty Mcdermott, [facility] [address], [place], [address]. tel:[phone] Office/Outpa tient Visit, Est [facility] , [address], [place], [address], [place] tel:[phone] [facility] , Rheumatoid arthritis with rheumatoid factor of multiple sites without organ or systems involvementO ther longterm (current) drug therapy 9 Jon Jay. [facility] [address], [place], [address], [place]. tel:[phone] Referring Provider: Pierre Deleon, [facility] [address], [place], [address]. tel:[phone] [facility] , [address], [place], [address], [place] tel:[phone] [facility] , No Information 9 Jon Jay. [facility] [address], [place], [address], [place]. tel:[phone] Referring Provider: Pierre Deleon, [facility] [address], [place], [address]. tel:[phone] Office/Outpa tient Visit, Est [facility] , [address], [place], [address], [place] tel:[phone] [facility] , Rheumatoid arthritis with rheumatoid factor of multiple sites without organ or systems involvementO ther longterm (current) drug therapy 9 Jon Jay. [facility] [address], [place], [address], [place]. tel:[phone] Referring Provider: Pierre Deleon, [facility] [address], [place], [address]. tel:[phone] [facility] , [address], [place], [address], [place] tel:[phone] [facility] , No Information 9 Waleska Atkins. [facility] [address], [place], [address], [place]. tel:[phone] Referring Provider: Wilbert Amato, [facility] [address], [place], [address]. tel:[phone] [facility] , [address], [place], [address], [place] tel:[phone] [facility] , No Information 9 Jon Jay. [facility] [address], [place], [address], [place]. tel:[phone] Referring Provider: Pierre Deleon, [facility] [address], [place], [address]. tel:[phone] [facility] , [address], [place], [address], [place] tel:[phone] [facility] , No Information 9 Mahi Hunter. [facility] [address], [place], [address], [place]. tel:[phone] Referring Provider: Dale Manuel, [facility] [address], [place], [address]. tel:[phone] [facility] , [address], [place], [address], [place] tel:[phone] [facility] , No Information 8 Jon Jay. [facility] [address], [place], [address], [place]. tel:[phone] Referring Provider: Pierre Deleon, [facility] [address], [place], [address]. tel:[phone] Office/Outpa tient Visit, Est [facility] , [address], [place], [address], [place] tel:[phone] [facility] , Rheumatoid arthritis with rheumatoid factor of multiple sites without organ or systems involvementO ther longterm (current) drug therapy Jon Jay. [facility] [address], [place], [address], [place]. tel:[phone] Referring Provider: Pierre Deleon, [facility] [address], [place], [address]. tel:[phone] [facility] , [address], [place], [address], [place] tel:[phone] [facility] , No Information 8 Alan Millan. [facility] [address], [place], [address], [place]. tel:[phone] Referring Provider: Monty Mcdermott, [facility] [address], [place], [address]. tel:[phone] [facility] , [address], [place], [address], [place] tel:[phone] [facility] , Rheumatoid arthritis with rheumatoid factor of multiple sites without organ or systems involvement 8 Waleska Atkins. [facility] [address], [place], [address], [place]. tel:[phone] Referring Provider: Wilbert Amato, [facility] [address], [place], [address]. [phone] [facility] , [address], [place], [address], [place] [phone] [facility] , No Information Dec- 8 Waleska Atkins. [facility] [address], [place], [address], [place]. tel:[phone] Referring Provider: Wilbert Amato, [facility] [address], [place], [address]. tel:[phone] [facility] , [address], [place], [address], [place] [phone] [facility] , Rheumatoid arthritis with rheumatoid factor of multiple sites without organ or systems involvement 0 8 Waleska Atkins. [facility] [address], [place], [address], [place]. tel:[phone] Referring Provider: Wilbert Amato, [facility] [address], [place], [address]. tel:[phone] [facility] , [address], [place], [address], [place] tel:[phone] [facility] , Rheumatoid arthritis with rheumatoid factor of multiple sites without organ or systems involvement Fe 8 Waleska Atkins. [facility] [address], [place], [address], [place]. tel:[phone] Referring Provider: Wilbert Amato, [facility] [address], [place], [address]. tel:[phone] [facility] , [address], [place], [address], [place] tel:[phone] [facility] , Rheumatoid arthritis with rheumatoid factor of multiple sites without organ or systems involvement 7 Jon Jay. [facility] [address], [place], [address], [place]. tel:[phone] Referring Provider: Pierre Deleon, [facility] [address], [place], [address]. tel:[phone] Office/Outpa tient Visit, Est [facility] , [address], [place], [address], [place] tel:[phone] [facility] , Follow Up of Rheumatoid arthritis (chief complaint)Mo nitor Chronic High Risk Meds (chief complaint) Rheumatoid arthritis with rheumatoid factor of multiple sites without organ or systems involvementO ther longterm (current) drug therapy 7 Jon Jay. [facility] [address], [place], [address], [place]. tel:[phone] Referring Provider: Pierre Deleon, [facility] [address], [place], [address]. tel:[phone] [facility] , [address], [place], [address], [place] tel:[phone] [facility] , Rheumatoid arthritis with rheumatoid factor of multiple sites without organ or systems involvement Apr-2 7 Mahi Hunter. [facility] [address], [place], [address], [place]. tel:[phone] Referring Provider: Dale Manuel, [facility] [address], [place], [address]. tel:[phone] [facility] , [address], [place], [address], [place] tel:[phone] [facility] , Rheumatoid arthritis with rheumatoid factor of multiple sites without organ or systems involvement Jon Jay. [facility] [address], [place], [address], [place]. tel:[phone] Referring Provider: Pierre Deleon, [facility] [address], [place], [address]. tel:[phone] [facility] , [address], [place], [address], [place] tel:[phone] [facility] , Rheumatoid arthritis with rheumatoid factor of multiple sites without organ or systems involvement Jon Jay. [facility] [address], [place], [address], [place]. tel:[phone] Referring Provider: Pierre Deleon, [facility] [address], [place], [address]. tel:[phone] [facility] , [address], [place], [address], [place] tel:[phone] [facility] , Rheumatoid arthritis with rheumatoid factor of multiple sites without organ or systems involvement Jon Jay. [facility] [address], [place], [address], [place]. tel:[phone] Referring Provider: Pierre Deleon, [facility] [address], [place], [address]. tel:[phone] [facility] , [address], [place], [address], [place] tel:[phone] [facility] , Rheumatoid arthritis with rheumatoid factor of multiple sites without organ or systems involvement Jon Jay. [facility] [address], [place], [address], [place]. tel:[phone] Referring Provider: Pierre Deleon, [facility] [address], [place], [address]. tel:[phone] Office/Outpa tient Visit, Est [facility] , [address], [place], [address], [place] tel:[phone] [facility] , Follow Up of Rheumatoid arthritis (chief complaint)Mo nitor Chronic High Risk Meds (chief complaint) Rheumatoid arthritis with rheumatoid factor of multiple sites without organ or systems involvementO ther longterm (current) drug therapy Jon Jay. [facility] [address], [place], [address], [place]. tel:[phone] Referring Provider: Pierre Deleon, [facility] [address], [place], [address]. tel:[phone] [facility] , [address], [place], [address], [place] tel:[phone] [facility] , No Information Jon Jay. [facility] [address], [place], [address], [place]. tel:[phone] Referring Provider: Pierre Deleon, [facility] [address], [place], [address]. tel:[phone] [facility] , [address], [place], [address], [place] tel:[phone] [facility] , Rheumatoid arthritis with rheumatoid factor of multiple sites without organ or systems involvement 7 Jon Jay. [facility] [address], [place], [address], [place]. tel:[phone] Referring Provider: Pierre Deleon, [facility] [address], [place], [address]. tel:[phone] [facility] , [address], [place], [address], [place] tel:[phone] [facility] , Rheumatoid arthritis with rheumatoid factor of multiple sites without organ or systems involvement 6 Jon Jay. [facility] [address], [place], [address], [place]. tel:[phone] Referring Provider: Pierre Deleon, [facility] [address], [place], [address]. tel:[phone] [facility] , [address], [place], [address], [place] tel:[phone] [facility] , Rheumatoid arthritis with rheumatoid factor of multiple sites without organ or systems involvement 6 Jon Jay. [facility] [address], [place], [address], [place]. tel:[phone] Referring Provider: Pierre Deleon, [facility] [address], [place], [address]. tel:[phone] Office/Outpa tient Visit, Est [facility] , [address], [place], [address], [place] tel:[phone] [facility] , Follow Up of Rheumatoid arthritis (chief complaint)Mo nitor Chronic High Risk Meds (chief complaint) Rheumatoid arthritis with rheumatoid factor of multiple sites without organ or systems involvementO ther longterm (current) drug therapy 6 Jon Jay. [facility] [address], [place], [address], [place]. tel:[phone] Referring Provider: Pierre Deleon, [facility] [address], [place], [address]. 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 [facility] [address], [place], [address], [place]. tel:[phone] Referring Provider: Pierre Deleon, [facility] [address], [place], [address]. 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 [facility] [address], [place], [address], [place]. tel:[phone] Referring Provider: Pierre Deleon, [facility] [address], [place], [address]. 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 [facility] [address], [place], [address], [place]. tel:[phone] Referring Provider: Pierre Deleon, [facility] [address], [place], [address]. tel:[phone] Office/Outpa tient Visit, Est [facility] , [address], [place], [address], [place] tel:[phone] [facility] , Follow Up of Rheumatoid arthritis (chief complaint)Mo nitor Chronic High Risk Meds (chief complaint) Rheumatoid arthritisThe rapeutic Drug Monitoring 5 Jon Jay. [facility] [address], [place], [address], [place]. tel:[phone] Referring Provider: Pierre Deleon, [facility] [address], [place], [address]. tel:[phone] Office/Outpa tient Visit, Est [facility] , [address], [place], [address], [place] tel:[phone] [facility] , Follow Up of Rheumatoid arthritis (chief complaint)Mo nitor Chronic High Risk Meds (chief complaint) Rheumatoid ArthritisThe rapeutic Drug Monitoring 5 Jon Jay. [facility] [address], [place], [address], [place]. tel:[phone] Referring Provider: Pierre Deleon, [facility] [address], [place], [address]. tel:[phone] Office/Outpa tient Visit, Est [facility] , [address], [place], [address], [place] tel:[phone] [facility] , Rheumatoid Arthritis (chief complaint)Mo nitor chronic high risk medications (chief complaint) Rheumatoid ArthritisThe [facility] Drug Monitoring 5 Jon Jay. [facility] [address], [place], [address], [place]. tel:[phone] Referring Provider: Pierre Deleon, [facility] [address], [place], [address]. tel:[phone] Office/Outpa tient Visit, Est [facility] , [address], [place], [address], [place] tel:[phone] [facility] , Rheumatoid Arthritis (chief complaint)Mo nitor chronic high risk medications (chief complaint) Rheumatoid ArthritisThe [facility] Drug Monitoring 4 Jon Jay. [facility] [address], [place], [address], [place]. tel:[phone] Referring Provider: Pierre Deleon, [facility] [address], [place], [address]. tel:[phone] Office/Outpa tient Visit, Est [facility] , [address], [place], [address], [place] tel:[phone] [facility] , Rheumatoid Arthritis (chief complaint)Mo nitor chronic high risk medications (chief complaint) Rheumatoid ArthritisThe rape[facility]ic Drug Monitoring 4 Jon Jay. [facility] [address], [place], [address], [place]. tel:[phone] Referring Provider: Pierre Deleon, [facility] [address], [place], [address]. tel:[phone] Office/Outpa tient Visit, Est [facility] , [address], [place], [address], [place] tel:[phone] [facility] , Rheumatoid Arthritis (chief complaint)Mo nitor chronic high risk medications (chief complaint) Rheumatoid ArthritisThe rapeutic Drug Monitoring 3 Jon Jay. [facility] [address], [place], [address], [place]. tel:[phone] Referring Provider: Pierre Deleon, [facility] [address], [place], [address]. tel:[phone] Office/Outpa tient Visit, [facility] , [address], [place], [address], [place] tel:[phone] [facility] , Rheumatoid Arthritis (chief complaint)Mo nitor chronic high risk medications (chief complaint) Rheumatoid ArthritisThe [facility]utic Drug Monitoring 3 Jon Jay. [facility] [address], [place], [address], [place]. tel:[phone] Referring Provider: Pierre Deleon, [facility] [address], [place], [address]. tel:[phone] Office/Outpa tient Visit, [facility] , [address], [place], [address], [place] tel:[phone] [facility] , Rheumatoid Arthritis (chief complaint) Rheumatoid ArthritisThe rapeutic Drug MonitoringEf fusion of lower leg joint 3 Jon Jay. [facility] [address], [place], [address], [place]. tel:[phone] Referring Provider: Pierre Deleon, [facility] [address], [place], [address]. tel:[phone] Office/Outpa tient Visit, [facility] , [address], [place], [address], [place] tel:[phone] [facility] , Rheumatoid Arthritis (chief complaint)Mo nitor chronic high risk medications (chief complaint) Rheumatoid ArthritisThe [facility] Drug Monitoring 3 Jon Jay. [facility] [address], [place], [address], [place]. tel:[phone] Referring Provider: Pierre Deleon, [facility] [address], [place], [address]. tel:[phone] [facility] , [address], [place], [address], [place] tel:[phone] [facility] , Monitor chronic high risk medications (chief complaint) No Information 2 Jon Jay. [facility] [address], [place], [address], [place]. tel:[phone] Referring Provider: Pierre Deleon, [facility] [address], [place], [address]. tel:[phone] Office/Outpa tient Visit, [facility] , [address], [place], [address], [place] tel:[phone] [facility] , Rheumatoid Arthritis (chief complaint) Rheumatoid ArthritisThe [facility] Drug Monitoring 2 Jon Jay. [facility] [address], [place], [address], [place]. tel:[phone] Referring Provider: Pierre Deleon, [facility] [address], [place], [address]. tel:[phone] Family History Family Member Type Diagnosis Age At Onset Paternal grandmother Problem (finding) Arthritis Payers Payer name Insurance type Covered republican ID [employer]auri best(s) [facility] [id number] Social History Type Description Quantity Date Captured Comments Alcohol Use Details Unknown Caffeine Use Details Unknown Tobacco Use Status No Information Smoking Status No Information Sex Male Vital Signs Date / Time: Height Weight BMI Pulse Rate Blood Pressure Temperature Respiratory Rate Body Surface Area Head Circumference Head Circ. Percentile Wt./Alberto. Percentile BMI percentile Pulse Ox Inhaled Ox 9:46 AM 87.540 kg (193.00 lbs) 9:52 AM 87.727 kg (193.00 lbs) 103 /min 143/83 mm[Hg] 97.80 F 10:28 AM 87.727 kg (193.00 lbs) 86 /min 146/80 mm[Hg] Chief Complaint And Reason For Visit No Information Reason For Referral Reason For Referral No Information Plan Of Treatment Date Type Action Status Appointment Teofilo Osorio BOOKED History Of Present Illness Encounter Date Complaint History Of Prese nt Illness Rheumatoid arthritis Monitor Chronic High Risk Meds Rheumatoid arthritis Monitor Chronic High Risk Meds Rheumatoid arthritis Monitor Chronic High Risk Meds Rheumatoid arthritis Monitor Chronic High Risk Meds Rheumatoid arthritis Monitor Chronic High Risk Meds Rheumatoid arthritis Monitor Chronic High Risk Meds Rheumatoid arthritis Monitor Chronic High Risk Meds Follow Up of Rheumat oid arthritis (comments) Long-standing seropositive rheumatoid arthritis. The patient continues to do relatively well despite dropping the methotrexate dosage. He has noted more pain in the right jaw all lately. If he takes prednisone as jaw pain improves. He has no history of TMJ. He also has noted issues with plantar fasciitis. Otherwise no newly inflamed or swollen joints to report.He has had a viral hepatitis which has subsequently cleared. His liver enzymes stabilized. This was why we initially decrease his methotrexate. Monitor Chronic High Risk Meds (comments) This patient continues to tolerate the methotrexate and Plaquenil without difficulty. Normal surveillance labs. Their surveillance labs are up-to-date and have been acceptable for continuation of medication. No recent infections or medication complications. Follow Up of Rheumat oid arthritis (comments) Seropositive rheumatoid arthritis.He now is back on methotrexate. His liver enzymes normalized as of March 23, 2015. Essentially had a hepatitis which has cleared.He had a joint flare recently that responded to prednisone at 10 milligrams a day for 3 days then he discontinued. He has done this episodically. He has continued with the Plaquenil.Overall, he is doing much better. No newly inflamed or swollen joints to report. No ocular complaints. No intestinal complaints. Monitor Chronic High Risk Meds (comments) This patient continues to tolerate the methotrexate without difficulty. Normal surveillance labs. Their surveillance labs are up-to-date and have been acceptable for continuation of medication. No recent infections or medication complications. Monitor Chronic High Risk Meds (comments) Historically, he has tolerated the methotrexate. He is overdue for surveillance labs. He is up-to-date with Plaquenil toxicity screening. Follow Up of Rheumat oid arthritis (comments) This patient has a long-standing history of seropositive rheumatoid arthritis. He did resume his medications after that appointment in July 2014. He did not resume Orencia. He did go back on his methotrexate at 8 tablets weekly and Plaquenil at 2 tablets daily. He missed his surveillance labs 3 months ago. He has had normal liver function test in the past with the methotrexate.Last Monday, the patient noted a discoloration in his urine. He was found to have an elevated bilirubin. I did not receive these laboratory results. His urine is starting to clear. He is scheduled to see his primary care Doctor next week for repeat blood test and urinalysis. He was told to continue with his medications.Overall, his joint symptoms have been minimal. Clinically, he feels stable. No recent infection. He has not had any problems with the gallbladder in the past. Apparently there was an ultrasound of the abdomen and he is unsure of the results. Functional Status Date Functional Assessmen t No Information Instructions Date Instruction Additional Infor aleksey The patient will con tact our office if they develop any unusual symptoms or a potential flare. The plan has been explained in detail to the patient and written instructions were provided when applicable. The patient left with a good understanding of the plan. Related to Therapeutic Drug Monitoring Assessments Type Assessment Date No Information Patient Care Teams Name Effective Dates (start - stop) Status Members No Information
--- OUTSIDE RECORDS SUMMARY | 2024-12-27 04:30 | XMS_ITS | Continuity of Care Document ---
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 [facility] [address], [place], [place], [address], [place]. tel:[phone] Referring Provider: Pierre Deleon, [facility] [address], [place], [address]. tel:[phone] [facility] , [address], [place], [address], [place] tel:[phone] [facility] , No Information 5 Sarah Bethtyra Zoyachet Seymour. [address], [place], [address], [place]. tel:[phone] Referring Provider: Dawn Hook, [address], [place], [address]. [phone] [facility] , [address], [place], [address], [place] [phone] [facility] , No Information 4 Sarah Bethtyra Zoya Dawn. [address], [address], [place], [address], [place]. [phone] Referring Provider: Dawn Hook, [address], [place], [address]. [phone] [facility] , [address], [place], [address], [place] tel:[phone] [facility] , Rheu arthritis w rheu factor mult site w/o org/sys involvOther prison (current) drug therapy 4 Jon Jay. [facility] [address], [place], [address], [place]. tel:[phone] Referring Provider: Pierre Deleon, [facility] [address], [place], [address]. tel:[phone] [facility] , [address], [place], [address], [place] tel:[phone] [facility] , No Information 4 Jon Jay. [facility] [address], [place], [address], [place]. tel:[phone] Referring Provider: Pierre Deleon, [facility] [address], [place], [address]. tel:[phone] [facility] , [address], [place], [address], [place] tel:[phone] [facility] , No Information 4 Jon Jay. [facility] [address], [place], [address], [place]. tel:[phone] Office/Outpa tient Visit, Est [facility] , [address], [place], [address], [place] tel:[phone] [facility] , Rheumatoid arthritis (chief complaint)Mo nitor Chronic High Risk Meds (chief complaint) Rheumatoid arthritis with rheumatoid factor of multiple sites without organ or systems involvementP ain in left wristOther prison (current) drug therapy 4 Jon Jay. [facility] [address], [place], [address], [place]. tel:[phone] Referring Provider: Pierre Deleon, [facility] [address], [place], [address]. tel:[phone] [facility] , [address], [place], [address], [place] tel:[phone] [facility] , No Information 4 Fátima Seymour. [address], [address], [place], [address], [place]. tel:[phone] Referring Provider: Dawn Hook, [address], [place], [address]. tel:[phone] [facility] , [address], [place], [address], [place] tel:[phone] [facility] , Rheu arthritis w rheu factor mult site w/o org/sys involvOther remote computer terminal operator (current) drug therapy 4 Jon Jay. [facility] [address], [place], [address], [place]. tel:[phone] Referring Provider: Pierre Deleon, [facility] [address], [place], [address]. tel:[phone] [facility] , [address], [place], [address], [place] tel:[phone] [facility] , No Information 4 Jon Jay. [facility] [address], [place], [address], [place]. tel:[phone] Referring Provider: Pierre Deleon, [facility] [address], [place], [address]. tel:[phone] [facility] , [address], [place], [address], [place] tel:[phone] [facility] , No Information 3 Fátima Seymour. [address], [address], [place], [address], [place]. tel:[phone] Referring Provider: Dawn Hook, [address], [place], [address]. tel:[phone] [facility] , [address], [place], [address], [place] tel:[phone] [facility] , No Information 3 Jon Jay. [facility] [address], [place], [address], [place]. tel:[phone] Referring Provider: Pierre Deleon, [facility] [address], [place], [address]. tel:[phone] [facility] , [address], [place], [address], [place] tel:[phone] [facility] , No Information 3 Fátima Pierre. [facility] [address], [place], [address], [place]. tel:[phone] Referring Provider: Gabby Aquino, [facility] [address], [place], [address]. tel:[phone] [facility] , [address], [place], [address], [place] tel:[phone] [facility] , No Information 3 Jon Jay. [facility] [address], [place], [address], [place]. tel:[phone] Office/Outpa tient Visit, Est [facility] , [address], [place], [address], [place] tel:[phone] [facility] , Rheumatoid arthritis (chief complaint)Mo nitor Chronic High Risk Meds (chief complaint) Rheumatoid arthritis with rheumatoid factor of multiple sites without organ or systems involvementP ain in left wristOther prison (current) drug therapy 3 Jon Jay. [facility] [address], [place], [address], [place]. tel:[phone] Referring Provider: Pierre Deleon, [facility] [address], [place], [address]. tel:[phone] [facility] , [address], [place], [address], [place] tel:[phone] [facility] , No Information 3 Jon Jay. [facility] [address], [place], [address], [place]. tel:[phone] Referring Provider: Pierre Deleon, [facility] [address], [place], [address]. tel:[phone] [facility] , [address], [place], [address], [place] tel:[phone] [facility] , No Information 3 Waleska Atkins. [facility] [address], [place], [address], [place]. tel:[phone] Referring Provider: Wilbert Amato, [facility] [address], [place], [address]. tel:[phone] Office/Outpa tient Visit, Est [facility] , [address], [place], [address], [place] tel:[phone] [facility] , Rheumatoid arthritis (chief complaint)Mo nitor Chronic High Risk Meds (chief complaint) Rheumatoid arthritis with rheumatoid factor of multiple sites without organ or systems involvementO ther remote computer terminal operator (current) drug therapyPain in left wrist 3 Jon Jay. [facility] [address], [place], [address], [place]. tel:[phone] Referring Provider: Pierre Deleon, [facility] [address], [place], [address]. tel:[phone] [facility] , [address], [place], [address], [place] tel:[phone] [facility] , No Information 2 Jon Jay. [facility] [address], [place], [address], [place]. tel:[phone] Referring Provider: Pierre Deleon, [facility] [address], [place], [address]. tel:[phone] [facility] , [address], [place], [address], [place] tel:[phone] [facility] , No Information 2 Jon Jay. [facility] [address], [place], [address], [place]. tel:[phone] Referring Provider: Pierre Deleon, [facility] [address], [place], [address]. tel:[phone] [facility] , [address], [place], [address], [place] tel:[phone] [facility] , No Information 2 Jon Jay. [facility] [address], [place], [address], [place]. tel:[phone] Referring Provider: Pierre Deleon, [facility] [address], [place], [address]. tel:[phone] [facility] , [address], [place], [address], [place] tel:[phone] [facility] , No Information 2 Waleska Atkins. [facility] [address], [place], [address], [place]. tel:[phone] Referring Provider: Wiblert Amato, [facility] [address], [place], [address]. tel:[phone] Office/Outpa tient Visit, Est [facility] , [address], [place], [address], [place] tel:[phone] [facility] , Rheumatoid arthritis (chief complaint)Mo nitor Chronic High Risk Meds (chief complaint) Rheumatoid arthritis with rheumatoid factor of multiple sites without organ or systems involvementO ther prison (current) drug therapy 2 Jon Jay. [facility] [address], [place], [address], [place]. tel:[phone] Referring Provider: Pierre Deleon, [facility] [address], [place], [address]. tel:[phone] Office/Outpa tient Visit, Est [facility] , [address], [place], [address], [place] tel:[phone] [facility] , Rheumatoid arthritis (chief complaint)Mo nitor Chronic High Risk Meds (chief complaint) Rheumatoid arthritis with rheumatoid factor of multiple sites without organ or systems involvementO ther remote computer terminal operator (current) drug therapy 2 Jon Jay. [facility] [address], [place], [address], [place]. tel:[phone] Referring Provider: Pierre Deleon, [facility] [address], [place], [address]. tel:[phone] Office/Outpa tient Visit, Est [facility] , [address], [place], [address], [place] tel:[phone] [facility] , Rheumatoid arthritis (chief complaint)Mo nitor Chronic High Risk Meds (chief complaint) Rheumatoid arthritis with rheumatoid factor of multiple sites without organ or systems involvementO ther remote computer terminal operator (current) drug therapy 1 Jon Jay. [facility] [address], [place], [address], [place]. tel:[phone] Referring Provider: Pierre Deleon, [facility] [address], [place], [address]. tel:[phone] [facility] , [address], [place], [address], [place] tel:[phone] [facility] , No Information 1 Jon Jay. [facility] [address], [place], [address], [place]. tel:[phone] Referring Provider: Pierre Deleon, [facility] [address], [place], [address]. tel:[phone] [facility] , [address], [place], [address], [place] tel:[phone] [facility] , No Information 1 Mahi Hunter. [facility] [address], [place], [address], [place]. tel:[phone] Referring Provider: Dale Manuel, [facility] [address], [place], [address]. tel:[phone] [facility] , [address], [place], [address], [place] tel:[phone] [facility] , No Information 1 Tam Anglin. [facility] [address], [place], [address], [place]. tel:[phone] Referring Provider: Derrek Aquino, [facility] [address], [place], [address]. tel:[phone] Office/Outpa tient Visit, Est [facility] , [address], [place], [address], [place] tel:[phone] [facility] , Rheumatoid arthritis (chief complaint)Mo nitor Chronic High Risk Meds (chief complaint) Rheumatoid arthritis with rheumatoid factor of multiple sites without organ or systems involvementO ther remote computer terminal operator (current) drug therapy 1 Jon Jay. [facility] [address], [place], [address], [place]. tel:[phone] Referring Provider: Pierre Deleon, [facility] [address], [place], [address]. tel:[phone] [facility] , [address], [place], [address], [place] tel:[phone] [facility] , No Information 1 Jon Jay. [facility] [address], [place], [address], [place]. tel:[phone] Referring Provider: Pierre Deleon, [facility] [address], [place], [address]. tel:[phone] [facility] , [address], [place], [address], [place] tel:[phone] [facility] , No Information 0 Jon Jay. [facility] [address], [place], [address], [place]. tel:[phone] Referring Provider: Pierre Deleon, [facility] [address], [place], [address]. tel:[phone] Office/Outpa tient Visit, Est [facility] , [address], [place], [address], [place] tel:[phone] [facility] , Rheumatoid arthritis with rheumatoid factor of multiple sites without organ or systems involvementO ther remote computer terminal operator (current) drug therapy 0 Jon Jay. [facility] [address], [place], [address], [place]. tel:[phone] Referring Provider: Pierre Deleon, [facility] [address], [place], [address]. tel:[phone] [facility] , [address], [place], [address], [place] tel:[phone] [facility] , No Information 0 0 Waleska Atkins. [facility] [address], [place], [address], [place]. tel:[phone] Referring Provider: Wilbert Amato, [facility] [address], [place], [address]. tel:[phone] [facility] , [address], [place], [address], [place] tel:[phone] [facility] , No Information Fátima Pierre. [facility] [address], [place], [address], [place]. tel:[phone] Referring Provider: Gabby Shine A, [facility] [address], [place], [address]. tel:[phone] [facility] , [address], [place], [address], [place] tel:[phone] [facility] , No Information 9 Alan Millan. [facility] [address], [place], [address], [place]. tel:[phone] Referring Provider: Monty Mcdermott, [facility] [address], [place], [address]. tel:[phone] Office/Outpa tient Visit, Est [facility] , [address], [place], [address], [place] tel:[phone] [facility] , Rheumatoid arthritis with rheumatoid factor of multiple sites without organ or systems involvementO ther prison (current) drug therapy 9 Jon Jay. [facility] [address], [place], [address], [place]. tel:[phone] Referring Provider: Pierre Deleon, [facility] [address], [place], [address]. tel:[phone] [facility] , [address], [place], [address], [place] tel:[phone] [facility] , No Information 9 Jon Jay. [facility] [address], [place], [address], [place]. tel:[phone] Referring Provider: Pierre Deleon, [facility] [address], [place], [address]. tel:[phone] Office/Outpa tient Visit, Est [facility] , [address], [place], [address], [place] tel:[phone] [facility] , Rheumatoid arthritis with rheumatoid factor of multiple sites without organ or systems involvementO ther prison (current) drug therapy 9 Jon Jay. [facility] [address], [place], [address], [place]. tel:[phone] Referring Provider: Pierre Deleon, [facility] [address], [place], [address]. tel:[phone] [facility] , [address], [place], [address], [place] tel:[phone] [facility] , No Information 9 Waleska Atkins. [facility] [address], [place], [address], [place]. tel:[phone] Referring Provider: Wilbert Amato, [facility] [address], [place], [address]. tel:[phone] [facility] , [address], [place], [address], [place] tel:[phone] [facility] , No Information 9 Jon Jay. [facility] [address], [place], [address], [place]. tel:[phone] Referring Provider: Pierre Deleon, [facility] [address], [place], [address]. tel:[phone] [facility] , [address], [place], [address], [place] tel:[phone] [facility] , No Information 9 Mahi Hunter. [facility] [address], [place], [address], [place]. tel:[phone] Referring Provider: Dale Manuel, [facility] [address], [place], [address]. tel:[phone] [facility] , [address], [place], [address], [place] tel:[phone] [facility] , No Information 8 Jon Jay. [facility] [address], [place], [address], [place]. tel:[phone] Referring Provider: Pierre Deleon, [facility] [address], [place], [address]. tel:[phone] Office/Outpa tient Visit, Est [facility] , [address], [place], [address], [place] tel:[phone] [facility] , Rheumatoid arthritis with rheumatoid factor of multiple sites without organ or systems involvementO ther prison (current) drug therapy Jon Jay. [facility] [address], [place], [address], [place]. tel:[phone] Referring Provider: Pierre Deleon, [facility] [address], [place], [address]. tel:[phone] [facility] , [address], [place], [address], [place] tel:[phone] [facility] , No Information 8 Alan Millan. [facility] [address], [place], [address], [place]. tel:[phone] Referring Provider: Monty Mcdermott, [facility] [address], [place], [address]. tel:[phone] [facility] , [address], [place], [address], [place] tel:[phone] [facility] , Rheumatoid arthritis with rheumatoid factor of multiple sites without organ or systems involvement 8 Waleska Atkins. [facility] [address], [place], [address], [place]. tel:[phone] Referring Provider: Wilbert Amato, [facility] [address], [place], [address]. tel:[phone] [facility] , [address], [place], [address], [place] tel:[phone] [facility] , No Information Dec- 8 Waleska Atkins. [facility] [address], [place], [address], [place]. tel:[phone] Referring Provider: Wilbert Amato, [facility] [address], [place], [address]. tel:[phone] [facility] , [address], [place], [address], [place] tel:[phone] [facility] , Rheumatoid arthritis with rheumatoid factor of multiple sites without organ or systems involvement 0 8 Waleska Atkins. [facility] [address], [place], [address], [place]. tel:[phone] Referring Provider: Wilbert Amato, [facility] [address], [place], [address]. tel:[phone] [facility] , [address], [place], [address], [place] tel:[phone] [facility] , Rheumatoid arthritis with rheumatoid factor of multiple sites without organ or systems involvement Fe 8 Waleska Atkins. [facility] [address], [place], [address], [place]. tel:[phone] Referring Provider: Wilbert Amato, [facility] [address], [place], [address]. tel:[phone] [facility] , [address] [address], [place], [address], [place] tel:[phone] [facility] , Rheumatoid arthritis with rheumatoid factor of multiple sites without organ or systems involvement 7 Jon Jay. [facility] [address], [place], [address], [place]. tel:[phone] Referring Provider: Pierre Deleon, [facility] [address], [place], [address]. tel:[phone] Office/Outpa tient Visit, Est [facility] , [address], [place], [address], [place] tel:[phone] [facility] , Follow Up of Rheumatoid arthritis (chief complaint)Mo nitor Chronic High Risk Meds (chief complaint) Rheumatoid arthritis with rheumatoid factor of multiple sites without organ or systems involvementO ther prison (current) drug therapy 7 Jon Jay. [facility] [address], [place], [address], [place]. tel:[phone] Referring Provider: Pierre Deleon, [facility] [address], [place], [address]. tel:[phone] [facility] , [address], [place], [address], [place] tel:[phone] [facility] , Rheumatoid arthritis with rheumatoid factor of multiple sites without organ or systems involvement Apr-2 7 Mahi Hunter. [facility] [address], [place], [address], [place]. tel:[phone] Referring Provider: Dale Manuel, [facility] [address], [place], [address]. tel:[phone] [facility] , [address], [place], [address], [place] tel:[phone] [facility] , Rheumatoid arthritis with rheumatoid factor of multiple sites without organ or systems involvement Jon Jay. [facility] [address], [place], [address], [place]. tel:[phone] Referring Provider: Pierre Deleon, [facility] [address], [place], [address]. tel:[phone] [facility] , [address], [place], [address], [place] tel:[phone] [facility] , Rheumatoid arthritis with rheumatoid factor of multiple sites without organ or systems involvement Jon Jay. [facility] [address], [place], [address], [place]. tel:[phone] Referring Provider: Pierre Deleon, [facility] [address], [place], [address]. tel:[phone] [facility] , [address], [place], [address], [place] tel:[phone] [facility] , Rheumatoid arthritis with rheumatoid factor of multiple sites without organ or systems involvement Jon Jay. [facility] [address], [place], [address], [place]. tel:[phone] Referring Provider: Pierre Deleon, [facility] [address], [place], [address]. tel:[phone] [facility] , [address], [place], [address], [place] tel:[phone] [facility] , Rheumatoid arthritis with rheumatoid factor of multiple sites without organ or systems involvement Jon Jay. [facility] [address], [place], [address], [place]. tel:[phone] Referring Provider: Pierre Deleon, [facility] [address], [place], [address]. tel:[phone] Office/Outpa tient Visit, Est [facility] , [address], [place], [address], [place] tel:[phone] [facility] , Follow Up of Rheumatoid arthritis (chief complaint)Mo nitor Chronic High Risk Meds (chief complaint) Rheumatoid arthritis with rheumatoid factor of multiple sites without organ or systems involvementO ther prison (current) drug therapy Jon Jay. [facility] [address], [place], [address], [place]. tel:[phone] Referring Provider: Pierre Deleon, [facility] [address], [place], [address]. tel:[phone] [facility] , [address], [place], [address], [place] tel:[phone] [facility] , No Information Jon Jay. [facility] [address], [place], [address], [place]. tel:[phone] Referring Provider: Pierre Deleon, [facility] [address], [place], [address]. tel:[phone] [facility] , [address], [place], [address], [place] tel:[phone] [facility] , Rheumatoid arthritis with rheumatoid factor of multiple sites without organ or systems involvement 7 Jon Jay. [facility] [address], [place], [address], [place]. tel:[phone] Referring Provider: Pierre Deleon, [facility] [address], [place], [address]. tel:[phone] [facility] , [address], [place], [address], [place] tel:[phone] [facility] , Rheumatoid arthritis with rheumatoid factor of multiple sites without organ or systems involvement 6 Jon Jay. [facility] [address], [place], [address], [place]. tel:[phone] Referring Provider: Pierre Deleon, [facility] [address], [place], [address]. tel:[phone] [facility] , [address], [place], [address], [place] tel:[phone] [facility] , Rheumatoid arthritis with rheumatoid factor of multiple sites without organ or systems involvement 6 Jon Jay. [facility] [address], [place], [address], [place]. tel:[phone] Referring Provider: Pierre Deleon, [facility] [address], [place], [address]. tel:[phone] Office/Outpa tient Visit, Est [facility] , [address], [place], [address], [place] tel:[phone] [facility] , Follow Up of Rheumatoid arthritis (chief complaint)Mo nitor Chronic High Risk Meds (chief complaint) Rheumatoid arthritis with rheumatoid factor of multiple sites without organ or systems involvementO ther prison (current) drug therapy 6 Jon Jay. [facility] [address], [place], [address], [place]. tel:[phone] Referring Provider: Pierre Deleon, [facility] [address], [place], [address]. tel:[phone] Office/Outpa tient Visit, Est [facility] , [address], [place], [address], [place] tel:[phone] [facility] , Follow Up of Rheumatoid arthritis (chief complaint)Mo nitor Chronic High Risk Meds (chief complaint) Rheumatoid arthritis with rheumatoid factor of multiple sites without organ or systems involvementO ther remote computer terminal operator (current) drug therapy 6 Jon Jay. [facility] [address], [place], [address], [place]. tel:[phone] Referring Provider: Pierre Deleon, [facility] [address], [place], [address]. tel:[phone] Office/Outpa tient Visit, Est [facility] , [address], [place], [address], [place] tel:[phone] [facility] , Follow Up of Rheumatoid arthritis (chief complaint)Mo nitor Chronic High Risk Meds (chief complaint) Rheumatoid arthritis with rheumatoid factor of multiple sites without organ or systems involvementO ther remote computer terminal operator (current) drug therapy 6 Jon Jay. [facility] [address], [place], [address], [place]. tel:[phone] Referring Provider: Pierre Deleon, [facility] [address], [place], [address]. tel:[phone] Office/Outpa tient Visit, Est [facility] , [address], [place], [address], [place] tel:[phone] [facility] , Follow Up of Rheumatoid arthritis (chief complaint)Mo nitor Chronic High Risk Meds (chief complaint) Rheumatoid arthritis with rheumatoid factor of multiple sites without organ or systems involvementO ther remote computer terminal operator (current) drug therapy 6 Jon Jay. [facility] [address], [place], [address], [place]. tel:[phone] Referring Provider: Pierre Deleon, [facility] [address], [place], [address]. tel:[phone] Office/Outpa tient Visit, Est [facility] , [address], [place], [address], [place] tel:[phone] [facility] , Follow Up of Rheumatoid arthritis (chief complaint)Mo nitor Chronic High Risk Meds (chief complaint) Rheumatoid arthritisThe rapeutic Drug Monitoring 5 Jon Jay. [facility] [address], [place], [address], [place]. tel:[phone] Referring Provider: Pierre Deleon, [facility] [address], [place], [address]. tel:[phone] Office/Outpa tient Visit, Est [facility] , [address], [place], [address], [place] tel:[phone] [facility] , Follow Up of Rheumatoid arthritis (chief complaint)Mo nitor Chronic High Risk Meds (chief complaint) Rheumatoid ArthritisThe rapeutic Drug Monitoring 5 Jon Jay. [facility] [address], [place], [address], [place]. tel:[phone] Referring Provider: Pierre Deleon, [facility] [address], [place], [address]. tel:[phone] Office/Outpa tient Visit, Est [facility] , [address], [place], [address], [place] tel:[phone] [facility] , Rheumatoid Arthritis (chief complaint)Mo nitor chronic high risk medications (chief complaint) Rheumatoid ArthritisThe rapeutic Drug Monitoring 5 Jon Jay. [facility] [address], [place], [address], [place]. tel:[phone] Referring Provider: Pierre Deleon, [facility] [address], [place], [address]. tel:[phone] Office/Outpa tient Visit, Est [facility] , [address], [place], [address], [place] tel:[phone] [facility] , Rheumatoid Arthritis (chief complaint)Mo nitor chronic high risk medications (chief complaint) Rheumatoid ArthritisThe rapeutic Drug Monitoring 4 Jon Jay. [facility] [address], [place], [address], [place]. tel:[phone] Referring Provider: Pierre Deleon, [facility] [address], [place], [address]. tel:[phone] Office/Outpa tient Visit, Est [facility] , [address], [place], [address], [place] tel:[phone] [facility] , Rheumatoid Arthritis (chief complaint)Mo nitor chronic high risk medications (chief complaint) Rheumatoid ArthritisThe rapeutic Drug Monitoring 4 Jon Jay. [facility] [address], [place], [address], [place]. tel:[phone] Referring Provider: Pierre Deleon, [facility] [address], [place], [address]. tel:[phone] Office/Outpa tient Visit, Est [facility] , [address], [place], [address], [place] tel:[phone] [facility] , Rheumatoid Arthritis (chief complaint)Mo nitor chronic high risk medications (chief complaint) Rheumatoid ArthritisThe [facility]utic Drug Monitoring 3 Jon Jay. [facility] [address], [place], [address], [place]. tel:[phone] Referring Provider: Pierre Deleon, [facility] [address], [place], [address]. tel:[phone] Office/Outpa tient Visit, Est [facility] , [address], [place], [address], [place] tel:[phone] [facility] , Rheumatoid Arthritis (chief complaint)Mo nitor chronic high risk medications (chief complaint) Rheumatoid ArthritisThe [facility]ic Drug Monitoring 3 Jon Jay. [facility] [address], [place], [address], [place]. tel:[phone] Referring Provider: Pierre Deleon, [facility] [address], [place], [address]. tel:[phone] Office/Outpa tient Visit, Est [facility] , [address], [place], [address], [place] tel:[phone] [facility] , Rheumatoid Arthritis (chief complaint) Rheumatoid ArthritisThe rapeutic Drug MonitoringEf fusion of lower leg joint 3 Jon Jay. [facility] [address], [place], [address], [place]. tel:[phone] Referring Provider: Pierre Deleon, [facility] [address], [place], [address]. tel:[phone] Office/Outpa tient Visit, Est [facility] , [address], [place], [address], [place] tel:[phone] [facility] , Rheumatoid Arthritis (chief complaint)Mo nitor chronic high risk medications (chief complaint) Rheumatoid ArthritisThe rapeutic Drug Monitoring 3 Jon Jay. [facility] [address], [place], [address], [place]. tel:[phone] Referring Provider: Pierre Deleon, [facility] [address], [place], [address]. tel:[phone] [facility] , [address], [place], [address], [place] tel:[phone] [facility] , Monitor chronic high risk medications (chief complaint) No Information 2 Jon Jay. [facility] [address], [place], [address], [place]. tel:[phone] Referring Provider: Pierre Deleon, [facility] [address], [place], [address]. tel:[phone] Office/Outpa tient Visit, Est [facility] , [address], [place], [address], [place] tel:[phone] [facility] , Rheumatoid Arthritis (chief complaint) Rheumatoid ArthritisThe rapeutic Drug Monitoring 2 Jon Jay. [facility] [address], [place], [address], [place]. tel:[phone] Referring Provider: Pierre Deleon, [facility] [address], [place], [address]. tel:[phone] Family History Family Member Type Diagnosis Age At Onset Paternal grandmother Problem (finding) Arthritis Payers Payer name Insurance type Covered green party ID [employer] best(s) [facility] [place] [id number] Social History Type Description Quantity Date Captured [...]
[2024-12-29] VITALS (12 sets, daily range): BP systolic 133–165; BP diastolic 79–125; PULSE 74–122; RESP 16–24; TEMP 36.7–37.1; O2SAT 94–98; BMI 29.0
--- NOTE | 2024-12-29 12:51 | CRLHL7_ITS ---
For Patients: As a result of the Century Cures Act, medical imaging exams and procedure reports are released immediately into your electronic medical record. You may view this report before your referring provider. If you have questions, please contact your health care provider. INDICATION: Slurred speech over the past few days, unsteady gait, trouble holding things TECHNIQUE: Noncontrast axial CT of the head. Coronal and sagittal reformats. Bone and soft tissue algorithms. COMPARISON: None. FINDINGS: The ventricles and cortical sulci appear age-appropriate. No midline shift or mass effect. No acute intracranial hemorrhage or extra-axial fluid collection. Douglass-white matter differentiation is grossly maintained. White matter attenuation is within normal limits. Calcific intracranial atherosclerotic plaquing. Midline structures are unremarkable. The calvarium appears grossly intact. Incidental congenital posterior C1 arch defect. Paranasal sinuses and mastoid air cells are clear. Orbits are unremarkable. IMPRESSION: 1. No CT evidence of acute intracranial abnormality. Please note that all CT scans at this facility use dose modulation, iterative reconstruction, and/or weight-based dosing when appropriate to reduce radiation dose to as low as reasonably achievable. Dictated by Kta Morocho MD @ 12/29/2024 1:29:51 PM (Electronically Signed)
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
[2024-12-29 13:12] LABS: Basophils Absolute Auto 0.03 K/uL (0.00-0.30); Basophils Percent Auto 0.3 % (0.0-3.0); Eosinophils Absolute Auto 0.28 K/uL (0.00-0.50); Eosinophils Percent Auto 3.2 % (0.0-7.0); Hematocrit* 39.5 % (37.0-53.0); Hemoglobin* 13.3 gm/dL (13.5-17.5); Immature Granulocytes Abs Auto 0.06 K/uL (0.00-0.30); Immature Granulocytes Pct Auto 0.7 %; Lymphocytes Percent Auto 27.8 % (20-44); Mean Corpuscular HGB Conc 34 gm/dL (32-36); Mean Corpuscular Hemoglobin 30 pg (26-34); Mean Corpuscular Volume 90 fL (80-100); Monocytes Percent Auto 6.7 % (0.0-11.0); Neutrophils Absolute Auto 5.29 K/uL (1.7-7.0); Neutrophils Percent Auto 61.3 % (42.0-72.0); Platelet Count* 248 K/uL (140-440); RDW Coefficient of Variation % 12.3 % (11.5-15.5); Red Blood Count* 4.39 m/uL (4.30-5.90); White Blood Count* 8.64 K/uL (4.50-11.00)
[2024-12-29 13:21] LABS: Slide Review Reflex No
[2024-12-29 13:23] LABS: Chloride* 105 mmol/L (96-114)
[2024-12-29 13:24] LABS: Potassium* 3.8 mmol/L (3.6-5.1); Sodium* 140 mmol/L (135-149)
[2024-12-29 13:26] LABS: Blood Urea Nitrogen* 28 mg/dL (7-30); Creatinine* 0.9 mg/dL (0.5-1.5); Estimated Glomerular Filt Rate 95 ml/min
[2024-12-29 13:27] LABS: Anion Gap 7 mEq/L (7-15); Calcium* 9.2 mg/dL (8.4-10.6); Carbon Dioxide* 28 mmol/L (20-32); Glucose* 104 mg/dL (60-115)
[2024-12-29] MEDS: ASPIRIN 81 MG TAB.CHEW 324 MG PO (13:41)
[2024-12-29] MEDS: CLOPIDOGREL 300 MG TABLET PO (13:41)
[2024-12-29 14:10] LABS: Thyroid Stimulating Hormone* 0.503 uIU/mL (0.270-4.20)
[2024-12-29 14:46] LABS: Troponin I* < 0.01 ng/mL (0.01-0.04)
--- NOTE | 2024-12-29 14:51 | P.IMHP_ITS ---
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 and hx but other diagnosis may explain the entirety of his presentation -asp/plavix load 12/29, 12/30 81mg/75mg of each -fluids if systolic BP drops below 120mmHg -echo/MR brain/MRA neck/PT and OT -lipids/A1C -neuro checks/HOB elevated -hold stimulants Status: Acute (2) Mental health disorder: Problem comment: -elements of bipolar, anxiety, ADD overlap -personality disorder not ruled out -Tremor is significant and differential wide (ferritin pending for iron deficiency) -Pt should have advanced imaging (ordered) and full neuropsych testing with f/u with psychiatry and/or neurology as outpatient. Status: Acute (3) Rheumatoid arthritis: Problem comment: Currently gets golimumab (Simponi) q 2 mo. last infusion was beginning of May. Followed by [facility] in [place]. 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 Status: Acute (4) ADD (attention deficit disorder): Problem comment: adderall - will hold during acute CVA phase and likely contraindicated going forward Status: Acute (5) Anxiety: Problem comment: lexapro - continue Status: Acute (6) MINO (obstructive sleep apnea): Problem comment: sleep study has recommended position and wedge not CPAP Status: Acute Hospitalist- H&P: HPI History of Present Illness Date Seen: 12/29/24 Chief complaint: stroke Narrative: ADMISSION HISTORY AND PHYSICAL - HOSPITALIST Chief Complaint: left sided weakness; slurred speech HPI: Teofilo is a 64 y/o WM who has a hx of RA (on TNFi), ADD (on Adderall), anxiety (on Lexapro) and MINO (not wearing CPAP) who presents with worsening neurologic symptoms in the last two days. His daughter stopped by today and he reviewed how he has been feeling and she called 911. 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 No hx of smoking or recreational drug use and reports minimal alcohol. He noted he had imbalance on his motorcycle causing him to lay it down a couple of times. Not usual for him. He is but lives separately from his and is unemployed. In speaking with him it becomes apparent that a lot of his issues have intensified over recent weeks/months. He endorses significant mental health issues and ADD. He was fired from his job last fall and has been unemployed since. He tremors all over his body for the last few years. His is bedside but because of his hoarding and housekeeping practices she moved to her own place and he visits her. He in effect lives alone. He describes waves of harman and not sleeping for 2-3 days and then in bed for a week. 2-3 months ago he started seeing an psych therapist, Dalton Gonsales, here in town and is on Lexapro 20mg and Adderall 45mg each am followed by 30mg at noon. This is prescribed by his PCP. He denies any previous heart or stroke history. He denies HTN, DM, Hyperlipidemia, smoking, family history for stroke. He is talkative and interrupts my questions frequently. He tremors throughout our interview. Neuro HPI: 64-year-old man with a couple of days of left-sided discoordinated and sensory loss. He has had poor balance and has dropped his motorcycle a couple times just today. No double vision or nausea. No vision loss or speech loss. He has had dysarthria associated with this. No clear trigger or alleviating factors. Neuro Consult Reviewed; Dr. Santillan - Admit to floor - Continuous cardiac monitoring - Aspirin 325 mg now and 81 mg daily starting tomorrow - Plavix 300 mg now and 75 mg daily starting tomorrow - Permissive hypertension to systolic 220mmHg and diastolic 120mmHg - NS for hydration - MRI brain without contrast and MRA of head and neck - TTE to evaluate for a cardiac source - Lipid Panel and hemoglobin A1c - PT/OT/Speech consult - Frequent neuro checks - SCDs while in bed - reason for no lytic: Outside of window - reason for no LUDWIN: Not consistent with LVO ER COURSE: Stat head CT, labs, neuro consult, aspirin and plavix. CODE STATUS: FULL CODE PCP: Dr. Carreno EMERGENCY CONTACT PLAN: Devon Coni Rel To Pat Cell I've updated the PFSH, medications and allergies in the Expanse tabs. INVESTIGATIONS: LABS/MICRO/ECG/IMAGING 154/100. Pulse 92. RR 24. Afebrile. O2 sats 90% on room air. CBCs unremarkable. Hemoglobin 13.3. Platelets 248. CMP is unremarkable. Creatinine is 0.9. Glucose is 104 Troponin and TSH unremarkable Head CT IMPRESSION: 1. No CT evidence of acute intracranial abnormality. EKG shows sinus tachycardia at a rate of 101. Otherwise normal ECG. REVIEW OF SYSTEMS: 12-point ROS completed with patient and negative unless otherwise stated in HPI or below. PHYSICAL EXAM: CONSTITUTIONAL: talkative, mildly pressured speech, tremulus GENERAL: Well-developed and at ideal body weight, in no respiratory distress. VITAL SIGNS: see record. HEENT: Sclerae are anicteric. No petechiae. CARDIAC: rhythm is regular. There is no S3 or rub. No harsh murmurs. Extremities show trace edema with symmetrical pulses. PULM: good air entry with no wheeze. NEURO: left hand ion exchange operator weakness when compared to the right hand, not appreciated on the lower extremities. no cranial nerve findings. No pronator drift. SKIN: No rashes, petechiae. deep abrasion on the right strauss, healing. PSYCHIATRIC: Euthymic. mildly hyperactive and mild pressured speech. ADMIT TO MEDSURG: FLOOR CARE DVT: ambulation; plavix/aspirin load GI: PO intake Time spent: Today I spent 75 minutes seeing the patient, discussing the patient with ER staff, reviewing Expanse and EPIC notes/diagnostics, discussing the care plan with our care time that includes social work, PT/OT, pharmacy, RT, fci and documenting my impressions and plan in the medical record. [facility] Medical History (Updated 12/29/24 @ 18:50 by Coni Peña MD) Family history of prostate cancer ?Z80.42 - Family history of malignant neoplasm of prostate (ICD-10) Diverticulosis of intestine ?K57.90 - Diverticulosis of intestine, part unspecified, without perforation or abscess without bleeding (ICD-10) Bee sting reaction ?T63.441A - Toxic effect of venom of bees, accidental (unintentional), initial encounter (ICD-10) Dyslipidemia ?E78.5 - Hyperlipidemia, unspecified (ICD-10) Adenomatous polyp of colon ?D12.6 - Benign neoplasm of colon, unspecified (ICD-10) Erectile dysfunction ?N52.9 - Male erectile dysfunction, unspecified (ICD-10) BPH (benign prostatic hyperplasia) ?N40.0 - Benign prostatic hyperplasia without lower urinary tract symptoms (ICD-10) Abnormal weight loss ?R63.4 - Abnormal weight loss (ICD-10) Surgical History Status post cholecystectomy ?Z90.49 - Acquired absence of other specified parts of digestive tract (ICD- 10) Family History Other Colon cancer Social History Narrative: Nonsmoker, nondrinker. 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 Travels. . However, lives separately from his Coni. Three adult children. What is your current living situation?: I presently have a place to live Problems where you live: no known problems Problems where you live details: NA In the past 12 months, utilities in danger of being shut off: no In past 12 months, lack of transportation kept you from medical appts, meetings, work, or getting things needed for daily living: no In the past 12 mos, have been you worried that your food would run out before you had money to buy more?: never true In the past 12 mos, the food you bought just didn't last and you didn't have money to buy more?: never true Highest level of school completed/degree received: Associate degree: occupational, technical, vocational program Smoking Status: Never smoker Do you use any of these nicotine containing products: None Second hand tobacco smoke exposure: No How often do you have a drink containing alcohol: never How often do you have six or more drinks on one occasion: Never AUDIT-C Alcohol total score: 0 Non-prescribed substance use: denies use Caffeine: No How often does anyone, including family, friends and others, physically hurt you : unable to answer How often does anyone, including family, friends and others, insult or talk down to you: unable to answer How often does anyone, including family, friends and others, threaten you with harm: unable to answer How often does anyone, including family, friends and others, scream or curse at you: unable to answer service: No Meds Home Medications and Allergies Home Medications ?Medication ?Instructions ?Recorded ?Confirmed ?Type epinephrine 0.3 mg/0.3 mL 0.3 mg IM ONCE PRN 01/28/22 12/29/24 History injection, auto-injector folic acid 1 mg tablet 1 mg PO DAILY 12/19/2212/29 History sildenafil 100 mg tablet 100 mg PO QDAY PRN sexual ac tivity 01/12/24 01/12/24 Rx #7 tabs dextroamphetamine-amphetamine 30 30 mg PO BID #60 tabs 05/01/24 12/29/24 Rx mg tablet tramadol 50 mg tablet 50 mg PO Q4H PRN pain #30 ta bs 10/30/24 12/29/24 Rx dextroamphetamine-amphetamine ER 1 cap PO DAILY 12/29/24 History 30 mg 24hr capsule,extend release escitalopram oxalate 10 mg tablet 10 mg PO DAILY 12/2912/29/24 History Allergies Allergy/AdvReac Type Severity Reaction Status Date / Time bee venom protein (honey bee) Allergy Severe Hives Verified 01/12/24 08:58 Sulfa (Sulfonamide Allergy Mild Rash Verified 01/12/24 08:58 Antibiotics) Exam Const: Vital Signs, click to edit/add: Vital Signs - 24 hr 12/29/24 13:00 12/29/24 13:12 12/29/24 13:22 Temperature 98.8 F Pulse Rate 94 Pulse Rate [Pulse Oximeter] 98 Respiratory Rate 24 Blood Pressure 150/87 H 165/92 H Blood Pressure [Le ft Upper Arm] 134/79 Pulse Oximetry 98 98 Oxygen Delivery [facility] Room Air 12/29/24 13:32 12/29/24 14:02 Temperature Pulse Rate 92 92 Pulse Rate [Pulse Oximeter] Respiratory Rate Blood Pressure 147/98 H 154/100 H Blood Pressure [Le ft Upper Arm] Pulse Oximetry 98 98 [facility] - [facility]: Result Labs Labs: Short CBC 12/29/24 Range/Units 13:04 WBC 8.64 (4.50-11.00) K/uL Hgb 13.3 L (13.5-17.5) gm/dL Hct 39.5 (37.0-53.0) % Plt Count 248 (140-440) K/uL BMP 12/29/24 13:04 Sodium 140 Potassium 3.8 Chloride 105 Carbon Dioxide 28 BUN 28 Creatinine 0.9 Glucose 104 Calcium 9.2 Cardiac Enzymes 12/29/24 Range/Units 13:04 Troponin I < 0.01 (0.01-0.04) ng/mL
[2024-12-29 15:09] LABS: Ferritin* 79.4 ng/mL (17.9-464.0)
[2024-12-29 15:23] LABS: Albumin* 3.6 g/dL (3.3-5.0); INR 0.91 (0.91-1.10); Prothrombin Time 13.1 Seconds
[2024-12-29 15:26] LABS: Alanine Aminotransferase* 28 U/L (4-50); Alkaline Phosphatase* 57 U/L (40-150); Aspartate Amino Transferase* 35 U/L (12-35); Bilirubin Direct* 0.3 mg/dL (0.0-0.5); Bilirubin Total* 0.6 mg/dL (0.1-1.5)
[2024-12-29 15:29] LABS: Ethanol* < 0.01 % (0.01-0.03)
[2024-12-29 18:24] LABS: Appearance Urine Clear (Clear); Bilirubin Urine Negative (Negative); Blood Urine Negative (Negative); Color Urine Yellow (Yellow); Glucose Urine Negative (Negative); Ketones Urine Negative (Negative); Leukocyte Esterase Urine Negative (Negative); Nitrite Urine Negative (Negative); Protein Urine Negative (Negative); Urobilinogen Urine 0.2 (0.2-1.0); pH Urine 8.5 (5.0-8.5)
[2024-12-29 18:31] LABS: Amphetamine Screen Urine POSITIVE (Negative); Barbiturate Screen Urine Negative (Negative); Benzodiazepines Screen Urine Negative (Negative); Cannabinoid Screen Urine Negative (Negative); Cocaine Screen Urine Negative (Negative); Methadone Screen Urine Negative (Negative); Methamphetamines Screen Urine Negative (Negative); Opiate Screen Urine Negative (Negative); Oxycodone Screen Urine Negative (Negative); Phencyclidine Screen Urine Negative (Negative); Tricyclic Antidepressant Urine Negative (Negative)
[2024-12-29 18:36] LABS: RBC Urine 0-2 (0-2); WBC Urine 0-2 (0-5)
[2024-12-29] MEDS: TRAMADOL HCL 50 MG TABLET PO (18:39)
--- NOTE | 2024-12-29 19:06 | PC.NURSE ---
Nursing Care Hours: [id number] Pt this shift alert and oriented upon arrival from ED. Ataxia noted to upper and lower extremities. Minimal L hand strength. Minimal slurred speech noted. Pt c/o bilat peripheral vision changes, reporting seeing items moving that are not there. SB assist required d/t unsteady gait. Wound scabbed to R knee, open to air. Pain reported to bilat posterior knees, treated with PO pain meds. EMS start IV to L AC, pt requested IV moved to hand. New IV placed. Orthostatics entered. No reports of dizziness and lightheadedness. During IV placement, pt reported numbness to L arm and leg to staff. When magnetic tape typewriter operator reassessed pt, pt states numbness improving. Pt reports loose stools without mucus or blood. Hat placed in toilet for observation. Tele shows sinus arrhythmia. Eating and drinking without issue. Pt reports sore throat with swollen lymph nodes. Lymph nodes palpated and WNL though pt reports tenderness. Some nystagmus eye movements during assessment when pt tracking penlight. unable to accommodate during eye test.
[2024-12-29] MEDS: 0.9 % SODIUM CHLORIDE 1000 ml 1,000 ML 125 ML IV (19:44)
[2024-12-29] MEDS: SODIUM CHLORIDE 0.9 % (FLUSH) 10 ML SYRINGE 5 ML IVF (19:45)
[2024-12-29] MEDS: ACETAMINOPHEN 325 MG TABLET 650 MG PO (21:26)
[2024-12-30 02:22] VITALS: BP 130/81; PULSE 63; RESP 16; TEMP 36.7; O2SAT 95
[2024-12-30 02:27] VITALS: PULSE 63
[2024-12-30] MEDS: 0.9 % SODIUM CHLORIDE 1000 ml 1,000 ML 125 ML IV (03:42)
[2024-12-30 03:43] LABS: Hemoglobin A1C* 5.3 % (0-5.6)
[2024-12-30 06:18] LABS: Basophils Percent Auto 0.3 % (0.0-3.0); Eosinophils Percent Auto 2.7 % (0.0-7.0); Hematocrit* 38.2 % (37.0-53.0); Hemoglobin* 12.9 gm/dL (13.5-17.5); Immature Granulocytes Pct Auto 0.7 %; Lymphocytes Percent Auto 34.4 % (20-44); Mean Corpuscular HGB Conc 34 gm/dL (32-36); Mean Corpuscular Hemoglobin 30 pg (26-34); Mean Corpuscular Volume 90 fL (80-100); Monocytes Percent Auto 6.3 % (0.0-11.0); Neutrophils Percent Auto 55.6 % (42.0-72.0); Platelet Count* 240 K/uL (140-440); RDW Coefficient of Variation % 12.2 % (11.5-15.5); Red Blood Count* 4.26 m/uL (4.30-5.90); White Blood Count* 11.52 K/uL (4.50-11.00)
[2024-12-30 06:21] LABS: Slide Review Reflex No
--- NOTE | 2024-12-30 06:22 | PC.NURSE ---
End of shift [id number]: A&O pleasant and cooperative. VSS. Reports intermittent pain in DARIELA posterior knees. Significant tremors noted in BLE. Tremors absent when sleeping. Slight left hand weakness noted otherwise neuros unremarkable. Pt does have some forgetfulness. Setting bed alarm off to go to bathroom. Reinforced use of call light. Ambulated in [place] w/ family last evening. Tolerated well. Bed alarm in place.
[2024-12-30 06:31] LABS: Chloride* 108 mmol/L (96-114)
[2024-12-30 06:32] LABS: Potassium* 3.9 mmol/L (3.6-5.1); Sodium* 137 mmol/L (135-149)
[2024-12-30 06:34] LABS: Blood Urea Nitrogen* 23 mg/dL (7-30); Cholesterol* 121 mg/dL (90-199); Est. Creatinine Clearance* 69.77; Estimated Glomerular Filt Rate 84 ml/min
[2024-12-30 06:35] LABS: Anion Gap 2 mEq/L (7-15); Calcium* 8.5 mg/dL (8.4-10.6); Carbon Dioxide* 27 mmol/L (20-32); Glucose* 90 mg/dL (60-115); Triglycerides* 64 mg/dL (40-149)
[2024-12-30 06:43] LABS: HDL Cholesterol* 32 mg/dL (>=40); LDL Cholesterol Calculated 76 mg/dL (<100)
[2024-12-30 07:00] VITALS: PULSE 59; PULSE 62; RESP 16
[2024-12-30 07:35] VITALS: BP 127/71; PULSE 59; RESP 16; TEMP 36.4; O2SAT 97
[2024-12-30] MEDS: SODIUM CHLORIDE 0.9 % (FLUSH) 10 ML SYRINGE 5 ML IVF (08:48)
[2024-12-30] MEDS: FOLIC ACID 1 MG TABLET PO (08:48)
[2024-12-30] MEDS: ESCITALOPRAM 10 MG TABLET PO (08:48)
[2024-12-30] MEDS: ASPIRIN 81 MG TABLET EC PO (08:48)
[2024-12-30] MEDS: CLOPIDOGREL 75 MG TABLET PO (08:48)
[2024-12-30 11:00] VITALS: PULSE 68
[2024-12-30 11:21] VITALS: BP 137/86; PULSE 68; RESP 16; TEMP 36.8; O2SAT 97
--- NOTE | 2024-12-30 13:36 | P.DS_ITS ---
DS: Providers Provider Date Seen: 12/30/24 Date of admission: 12/29/24 15:29 Primary care physician: Marcus Carreno MD Admitting Clinician: Kaitlin Meneses MD Consults: 12/29/24 15:59 Consult to Occupational Therapy [CONS] Routine Comment: Reason(s) for OT Consult:: Evaluate and Treat Any Restrictions?:: No Restrictions Consult to Physical Therapy [CONS] Routine Comment: Reason(s) for PT Consult:: Evaluate and Treat Any Restrictions?:: No Restrictions 12/30/24 10:07 Consult to Speech Therapy [CONS] Routine Comment: Reason(s) for Speech Consult:: Speech/Swallowing Eval Attending Physician on discharge: Kaitlin Meneses MD DS: Diagnosis Discharge Diagnosis (1) Suspected cerebrovascular accident: Status: Acute Problem details: -Pt presented to ED with 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 -asp/plavix load 12/29, 12/30 81mg/75mg of each -fluids if systolic BP drops below 120mmHg -echo ordered -PT and OT -lipids/A1C -neuro checks/HOB elevated -hold stimulants until stroke is ruled out. -brain MRI/MRA neck: No acute infarction or other acute intracranial pathology. Major intracranial arteries are patent. Major cervical arteries are patent. (2) Mental health disorder: Status: Acute Problem details: -elements of bipolar, anxiety, ADD overlap -personality disorder not ruled out -Tremor is significant and differential wide (ferritin pending for iron deficiency) -Pt should have advanced imaging (ordered) and full neuropsych testing with f/u with psychiatry and/or neurology as outpatient. (3) Rheumatoid arthritis: Status: Acute Problem details: Currently gets golimumab (Simponi) q 2 mo. last infusion was beginning of May. Followed by [facility] in [place]. 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 (4) ADD (attention deficit disorder): Status: Acute Problem details: on adderall (5) Anxiety: Status: Acute Problem details: lexapro - continue (6) MINO (obstructive sleep apnea): Status: Acute Problem details: sleep study has recommended position and wedge not CPAP DS: Summary Hospital Course Hospital Course: a 64 y/o WM who has a hx of RA (on TNFi), ADD (on Adderall), anxiety (on Eb apro) and MINO (not wearing CPAP) who presents with worsening neurologic symptoms in the last two days. He describes left wireline supervisor weakness, unsteadiness, peripheral vision changes, and some slurring speech. CTH was NL. We consulted Neuro tele on the case and they suggested doing an MRI brain in addition to MR a neck and an echo. Brain MRI/MRA neck: No acute infarction or other acute intracranial pathology. Major intracranial arteries are patent. Major cervical arteries are patent. Discussed with Neuro tele and they think the patient does not have a stroke and does he needs to follow-up with them in 4 weeks. PT examined the patient and recommended outpatient physical therapy. Patient was discharged home and agrees to the plan. Time Spent with Patient Time attestation: Total time spent providing and/or coordinating discharge services: Exam Narrative: Exam Narrative: Physical exam GENERAL: Comfortable, no acute distress. HEAD AND NECK: Atraumatic, normocephalic CARDIOVASCULAR: RRR. Normal S1, S2. No murmurs. RESPIRATORY: Clear to auscultation B/L. Good air entry B/L. No wheezes or rhonchi. GASTROINTESTINAL: Not distended, not tender to palpation. NEUROLOGY: Alert, awake, oriented X 3. Normal speech. No focal weakness. Const: Vital Signs, click to edit/add: Vital Signs - 24 hr 12/29/24 14:02 12/29/24 15:41 12/29/24 16:03 Temperature 98.1 F Pulse Rate 92 Pulse Rate [Left R adial] 94 Pulse Rate [Pulse Oximeter] Pulse Rate [orthos tatic lying Brachi al] 79 Pulse Rate [orthos tatic sitting Righ t Brachial] 122 H Pulse Rate [orthos tatic standing Rig ht Brachial] 105 H Respiratory Rate 16 Blood Pressure 154/100 H Blood Pressure [Ri ght Arm] 152/93 H Blood Pressure [or thostatic lying Ri ght Arm] 144/101 H Blood Pressure [or thostatic sitting Right Arm] 145/125 H Blood Pressure [or thostatic standing Right Arm] 133/87 Pulse Oximetry 98 Oxygen Delivery Me thod 12/29/24 18:00 12/29/24 19:23 12/29/24 19:23 Temperature 98.7 F Pulse Rate 84 Pulse Rate [Left R adial] Pulse Rate [Pulse Oximeter] 92 92 Pulse Rate [orthos tatic lying Brachi al] Pulse Rate [orthos tatic sitting Righ t Brachial] Pulse Rate [orthos tatic standing Rig ht Brachial] Respiratory Rate 18 Blood Pressure Blood Pressure [Ri ght Arm] 144/93 H Blood Pressure [or thostatic lying Ri ght Arm] Blood Pressure [or thostatic sitting Right Arm] Blood Pressure [or thostatic standing Right Arm] Pulse Oximetry 96 Oxygen Delivery Me thod Room Air 12/29/24 22:39 12/29/24 22:45 12/29/24 23:57 Temperature 98.3 F Pulse Rate 80 Pulse Rate [Left R adial] Pulse Rate [Pulse Oximeter] 74 74 Pulse Rate [orthos tatic lying Brachi al] Pulse Rate [orthos tatic sitting Righ t Brachial] Pulse Rate [orthos tatic standing Rig ht Brachial] Respiratory Rate 18 Blood Pressure Blood Pressure [Ri ght Arm] 141/84 H Blood Pressure [or thostatic lying Ri ght Arm] Blood Pressure [or thostatic sitting Right Arm] Blood Pressure [or thostatic standing Right Arm] Pulse Oximetry 94 Oxygen Delivery Me thod Room Air 12/30/24 02:22 12/30/24 02:27 12/30/24 07:00 Temperature 98.0 F Pulse Rate Pulse Rate [Left R adial] Pulse Rate [Pulse Oximeter] 63 63 59 L Pulse Rate [orthos tatic lying Brachi al] Pulse Rate [orthos tatic sitting Righ t Brachial] Pulse Rate [orthos tatic standing Rig ht Brachial] Respiratory Rate 16 Blood Pressure Blood Pressure [Ri ght Arm] 130/81 Blood Pressure [or thostatic lying Ri ght Arm] Blood Pressure [or thostatic sitting Right Arm] Blood Pressure [or thostatic standing Right Arm] Pulse Oximetry 95 Oxygen Delivery Me thod Room Air 12/30/24 07:00 12/30/24 07:00 12/30/24 07:35 Temperature 97.6 F Pulse Rate 62 Pulse Rate [Left R adial] Pulse Rate [Pulse Oximeter] 59 L 59 L Pulse Rate [orthos tatic lying Brachi al] Pulse Rate [orthos tatic sitting Righ t Brachial] Pulse Rate [orthos tatic standing Rig ht Brachial] Respiratory Rate 16 16 Blood Pressure Blood Pressure [Ri ght Arm] 127/71 Blood Pressure [or thostatic lying Ri ght Arm] Blood Pressure [or thostatic sitting Right Arm] Blood Pressure [or thostatic standing Right Arm] Pulse Oximetry 97 Oxygen Delivery Me thod Room Air 12/30/24 11:00 12/30/24 11:21 Temperature 98.2 F Pulse Rate Pulse Rate [Left R adial] Pulse Rate [Pulse Oximeter] 68 68 Pulse Rate [orthos tatic lying Brachi al] Pulse Rate [orthos tatic sitting Righ t Brachial] Pulse Rate [orthos tatic standing Rig ht Brachial] Respiratory Rate 16 Blood Pressure Blood Pressure [Ri ght Arm] 137/86 Blood Pressure [or thostatic lying Ri ght Arm] Blood Pressure [or thostatic sitting Right Arm] Blood Pressure [or thostatic standing Right Arm] Pulse Oximetry 97 Oxygen Delivery Me thod Room Air DS: Data Data Completed and Pending Completed studies during hospitalization: Procedures Plain Radiography of Gallbladder and Bile Ducts using Other Contrast (06/20/22) Resection of Gallbladder, Percutaneous Endoscopic Approach (06/20/22) Labs on day of discharge: Labs from last 24 hours 12/30/24 12/29/24 12/29/24 06:00 18:00 15:59 WBC 11.52 H RBC 4.26 L Hgb 12.9 L Hct 38.2 MCV 90 MCH 30 MCHC 34 RDW Coeff of [place] 12.2 Plt Count 240 Neut % (Auto) 55.6 Lymph % (Auto) 34.4 [place] % (Auto) 6.3 Eos % (Auto) 2.7 Baso % (Auto) 0.3 Neut # (Auto) 6.40 Lymph # (Auto) 4.00 H [place] # (Auto) 0.70 Eos # (Auto) 0.30 Baso # (Auto) 0.00 Abs Immat Gran (auto) 0.10 Imm/Tot Granulo (auto) 0.7 INR Sodium 137 Potassium 3.9 Chloride 108 Carbon Dioxide 27 Anion Gap 2 L BUN 23 Creatinine 1.0 Estimated Creat Clear 69.77 Estimated GFR 84 Glucose 90 Hemoglobin A1c Calcium 8.5 Ferritin Total Bilirubin Direct Bilirubin AST ALT Alkaline Phosphatase Troponin I Total Protein Albumin Triglycerides 64 Cholesterol 121 LDL Cholesterol, Calc 76 HDL Cholesterol 32 L TSH Urine Color Yellow Urine Appearance Clear Urine pH 8.5 Ur Specific [place] 1.020 Urine Protein Negative Urine Glucose (UA) Negative Urine Ketones Negative Urine Blood Negative Urine Nitrite Negative Urine Bilirubin Negative Urine Urobilinogen 0.2 Ur Leukocyte Esterase Negative Urine RBC 0-2 Urine WBC 0-2 Ur Squamous Epith Cells None Urine Bacteria None Urine Opiates Screen Negative Ur Oxycodone Screen Negative Urine Methadone Screen Negative Ur Barbiturates Screen Negative U Tricyclic Antidepress Negative Ur Phencyclidine Scrn Negative Ur Amphetamines Screen POSITIVE A U Methamphetamines Scrn Negative U Benzodiazepines Scrn Negative Urine Cocaine Screen Negative U Marijuana (THC) Screen Negative Ur Drug Screen Comment See Note Ethyl Alcohol Lab Acknowledgement Test Added 12/29/24 12/29/24 12/29/24 14:48 13:25 13:04 WBC RBC Hgb Hct MCV MCH MCHC RDW Coeff of [place] Plt Count Neut % (Auto) Lymph % (Auto) [place] % (Auto) Eos % (Auto) Baso % (Auto) Neut # (Auto) Lymph # (Auto) [place] # (Auto) Eos # (Auto) Baso # (Auto) Abs Immat Gran (auto) Imm/Tot Granulo (auto) INR 0.91 Sodium Potassium Chloride Carbon Dioxide Anion Gap BUN Creatinine Estimated Creat Clear Estimated GFR Glucose Hemoglobin A1c 5.3 Calcium Ferritin 79.4 Total Bilirubin 0.6 Direct Bilirubin 0.3 AST 35 ALT 28 Alkaline Phosphatase 57 Troponin I < 0.01 Total Protein 6.0 Albumin 3.6 Triglycerides Cholesterol LDL Cholesterol, Calc HDL Cholesterol TSH 0.503 Urine Color Urine Appearance Urine pH Ur Specific [place] Urine Protein Urine Glucose (UA) Urine Ketones Urine Blood Urine Nitrite Urine Bilirubin Urine Urobilinogen Ur Leukocyte Esterase Urine RBC Urine WBC Ur Squamous Epith Cells Urine Bacteria Urine Opiates Screen Ur Oxycodone Screen Urine Methadone Screen Ur Barbiturates Screen U Tricyclic Antidepress Ur Phencyclidine Scrn Ur Amphetamines Screen U Methamphetamines Scrn U Benzodiazepines Scrn Urine Cocaine Screen U Marijuana (THC) Screen Ur Drug Screen Comment Ethyl Alcohol < 0.01 Lab Acknowledgement Test Added Discharge Plan Discharge Disposition: Home, Self-Care Date of Admission: 12/29/24 15:29 Attending Provider on Discharge: Kaitlin Meneses Primary Care Provider: Marcus Carreno Condition: Improved Anticipated Discharge Date/Time: 12/30/24 14:52 Discharge Medications: Continued sildenafil 100 mg tablet 100 mg PO QDAY PRN (Reason: sexual activity) Qty: 7 6RF Rx Instructions: administer 30 minutes to 4 hours before activity folic acid 1 mg tablet 1 mg PO DAILY dextroamphetamine-amphetamine 30 mg capsule,extended release 24hr 1 cap PO DAILY escitalopram oxalate 10 mg tablet 10 mg PO DAILY epinephrine 0.3 mg/0.3 mL auto-injector 0.3 mg IM ONCE PRN Rx Instructions: as a single dose; may repeat once dextroamphetamine-amphetamine 30 mg tablet 30 mg PO BID Qty: 60 0RF Rx Instructions: administer doses at least 4-6 hours apart tramadol 50 mg tablet 50 mg PO Q4H PRN (Reason: pain) Qty: 30 1RF Discharge Orders: Discharge Order (Routine); Ordered 12/30/24 Ordered By: Kaitlin Meneses Patient Education: Ischemic Stroke (GEN) Additional Instructions: -You need to follow up with neurology in 4 weeks -You need to follow up with physical therapy as an outpatient - brain MRI did not show a stroke. Activity Level: Activity as Tolerated Discharge Diet: Regular Follow Up Appointments: Marcus Carreno MD [Primary Care Provider, Family Practice] - 01/01/25 2:00 pm Referral Note: Post Hospital Follow Up appointment scheduled at the [facility] with Dr. Carreno Forms: [facility] Info Instructions
--- NOTE | 2024-12-30 14:37 | PC.SOCIAL ---
Discharge planning: bog worker met with pt today to discuss pt's discharge home later today. Pt has no concerns with returning home and states that he plans to follow-up with Neurology and PT as an outpatient. Pt states that he has two friends that just moved into his house in his spare bedrooms that will be with him when he returns home. No social work needs were identified.
--- NOTE | 2024-12-30 15:21 | PC.NURSE ---
Pt doing well. VSS. Denies pain. Weakness resolving, normal strength to all extremities. Steady gait, independent in room. Good appetite. Resting well at this time.
--- NOTE | 2024-12-30 15:59 | CRLHL7_ITS ---
For Patients: As a result of the Cures Act, medical imaging exams and procedure reports are released immediately into your electronic medical record. You may view this report before your referring provider. If you have questions, please contact your health care provider. Dictation for this exam included within the brain MRI report from the same date. Dictated by Rico Horne MD @ 12/30/2024 1:29:54 PM (Electronically Signed)
--- NOTE | 2024-12-30 15:59 | CRLHL7_ITS ---
For Patients: As a result of the Century Cures Act, medical imaging exams and procedure reports are released immediately into your electronic medical record. You may view this report before your referring provider. If you have questions, please contact your health care provider. INDICATION: Slurred speech. Unsteady gait. TECHNIQUE: Brain MRI with and without contrast. MRA head and neck with and without contrast. 20 cc of Dotarem gadolinium based contrast administered. COMPARISON: Head CT from 12/29/2024. FINDINGS: MRI Head: No acute infarction. No acute or chronic intracranial blood products. No mass or pathologic intracranial enhancement. No intracranial signal abnormality. No hydrocephalus or extra-axial collections. The pituitary gland, parasellar structures and optic chiasm are normal. Posterior fossa is normal. The orbital contents are normal. No calvarial or skull base marrow signal abnormality. No obstructive sinus disease. No extracranial soft tissue findings. MRA Head: No proximal large vessel occlusion. The anterior cerebral arteries are patent. The middle cerebral arteries are patent. The posterior cerebral arteries are patent. The intradural vertebral arteries and basilar artery are patent. The intracranial internal carotid arteries are patent. No aneurysm or high flow vascular malformation. MRA Neck: The visualized portions of the common carotid arteries are patent. The internal carotid arteries are patent. Visualized portions of the cervical vertebral arteries are patent. No abnormal dilatation of the major cervical arteries. IMPRESSION: MRI Head: 1. No acute infarction or other acute intracranial pathology. 2. No mass or pathologic intracranial enhancement. 3. No other significant intracranial abnormalities. MRA Head: 1. Major intracranial arteries are patent. MRA Neck: 1. Major cervical arteries are patent. Dictated by Rico Horne MD @ 12/30/2024 1:28:34 PM (Electronically Signed)
--- NOTE | 2024-12-30 15:59 | CRLHL7_ITS ---
For Patients: As a result of the Cures Act, medical imaging exams and procedure reports are released immediately into your electronic medical record. You may view this report before your referring provider. If you have questions, please contact your health care provider. Dictation for this exam included within the brain MRI report from the same date. Dictated by Rico Horne MD @ 12/30/2024 1:29:09 PM (Electronically Signed)
--- NOTE | 2024-12-30 17:11 | PC.NURSE ---
Discharge instructions given to patient. All questions were answered and forms were signed. All belongings sent and forms were signed. Saline lock removed from left hand.
== END 2024-12-30 17:00 | disposition home or self-care (01) ==
LOC: ED 14:16 → MEDSURG 15:29
PROVIDERS: Family Medicine; Admitting Provider Student in an Organized Health Care Education/Training Program; Emergency Provider Emergency Medicine Emergency Medical Services; PCP Family Medicine; Visit Provider Student in an Organized Health Care Education/Training Program
DX: R09.89 Other specified symptoms and signs involving the circulatory and respiratory systems (principal); F99 Mental disorder, not otherwise specified; F98.8 Other specified behavioral and emotional disorders with onset usually occurring in childhood and adolescence; F31.9 Bipolar disorder, unspecified; F41.9 Anxiety disorder, unspecified; M06.9 Rheumatoid arthritis, unspecified; G47.33 Obstructive sleep apnea (adult) (pediatric); E61.1 Iron deficiency; R25.1 Tremor, unspecified; H53.459 Other localized visual field defect, unspecified eye; R53.1 Weakness; R47.81 Slurred speech; R26.81 Unsteadiness on feet; R06.83 Snoring; E78.5 Hyperlipidemia, unspecified; D12.6 Benign neoplasm of colon, unspecified; N52.9 Male erectile dysfunction, unspecified; N40.0 Benign prostatic hyperplasia without lower urinary tract symptoms; Z90.49 Acquired absence of other specified parts of digestive tract
CPT/HCPCS: 36415; 70450; 70544; 70549; 70553; 80048; 80061; 80076; 80306; 81001; 82077; 82728; 83036; 84443; 84484; 85025; 85610; 92610; 93005; 93306; 96360; 96361; 96374; 97116; 97162; 97165; 97530; 99214; 99215; 99285; 99291; A9270; A9575; G0378; J7030

== ENCOUNTER 2025-04-08 20:44 | Emergency (ER) | payer BC, SELFPAY ==
[2025-04-08 21:10] VITALS: BP 178/93; PULSE 87; RESP 18; TEMP 36.7; O2SAT 97; BMI 29.6
--- NOTE | 2025-04-08 21:25 | ED_ITS ---
HPI - General Adult General Chief complaint: Dental/Oral/Mouth Injury/Pain Stated complaint: right side of face is numb Time Seen by Provider: 04/08/25 21:25 History of Present Illness HPI narrative: Patient concerned about a dental abscess on right lower jaw area. Noted swelling during assessment. States that it hurt over the weekend, took some ibuprofen and it went away. Seems bigger today. Patient struggling financially and worried about cost with a dentist. Last time he checked it was $18,000 . Slight headache now as well. 64-year-old man presenting to the emergency department with concern of swelling in the right lower jaw. There was some discomfort a few days ago that initially improved perhaps with ibuprofen. Now swollen again. Has struggled with dental decay he thinks since taking Adderall. Knows he needs some dental care but unaffordable at this time. No fever. Does have little headache. No drainage. No neck pain. Has been having some numbness like Novocaine in the area of this swelling. Related Data Home Medications ?Medication ?Instructions ?Recorded ?Confirmed epinephrine 0.3 mg/0.3 mL 0.3 mg IM ONCE PRN 01/28/22 04/08/25 injection, auto-injector dextroamphetamine-amphetamine 30 30 mg PO DIRECTED 01/01/25 04/08/25 mg tablet dextroamphetamine-amphetamine ER 1 cap PO QAM 01/01/25 04/08/25 30 mg 24hr capsule,extend release escitalopram oxalate 10 mg tablet 10 mg PO DAILY 04/0804/08/25 prednisone 2.5 mg tablet 2.5 mg PO DAILY PRN 04/08/25 04/08/25 Previous Rx's ?Medication ?Instructions ?Recorded tramadol 50 mg tablet 50 mg PO Q4H PRN pain #30 ta bs 03/25/25 sildenafil 100 mg tablet 100 mg PO QDAY PRN sexual ac tivity 04/07/25 #7 tabs terbinafine HCl 250 mg tablet 250 mg PO QDAY #60 tabs 04/08/25 Allergies Allergy/AdvReac Type Severity Reaction Status Date / Time bee venom protein (honey bee) Allergy Severe Hives Verified 04/08/25 13:45 Sulfa (Sulfonamide Allergy Mild Rash Verified 04/08/25 13:45 Antibiotics) Review of Systems Status of ROS: Reports: 6 or more systems reviewed and unremarkable except as noted in History and below [facility] Medical History Diverticulosis of intestine ?K57.90 - Diverticulosis of intestine, part unspecified, without perforation or abscess without bleeding (ICD-10) Bee sting reaction ?T63.441A - Toxic effect of venom of bees, accidental (unintentional), initial encounter (ICD-10) Adenomatous polyp of colon ?D12.6 - Benign neoplasm of colon, unspecified (ICD-10) Erectile dysfunction ?N52.9 - Male erectile dysfunction, unspecified (ICD-10) Abnormal weight loss ?R63.4 - Abnormal weight loss (ICD-10) Surgical History Status post cholecystectomy ?Z90.49 - Acquired absence of other specified parts of digestive tract (ICD- 10) Family History Other Colon cancer Social History Narrative: Nonsmoker, nondrinker. 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 Travels. . However, lives separately from his Coni. Three adult children. What is your current living situation?: I presently have a place to live Problems where you live: no known problems Problems where you live details: NA In the past 12 months, utilities in danger of being shut off: no In past 12 months, lack of transportation kept you from medical appts, meetings, work, or getting things needed for daily living: no In the past 12 mos, have been you worried that your food would run out before you had money to buy more?: never true In the past 12 mos, the food you bought just didn't last and you didn't have money to buy more?: never true Highest level of school completed/degree received: Associate degree: occupational, technical, vocational program Smoking Status: Never smoker Do you use any of these nicotine containing products: None Second hand tobacco smoke exposure: No How often do you have a drink containing alcohol: never How often do you have six or more drinks on one occasion: Never AUDIT-C Alcohol total score: 0 Non-prescribed substance use: denies use Caffeine: No How often does anyone, including family, friends and others, physically hurt you : unable to answer How often does anyone, including family, friends and others, insult or talk down to you: unable to answer How often does anyone, including family, friends and others, threaten you with harm: unable to answer How often does anyone, including family, friends and others, scream or curse at you: unable to answer service: No Exam Narrative: Exam Narrative: Very pleasant. Calm. Quiet. NAD. Breathing easily. No stridor. Cranial nerves 2-12 intact; no facial motor deficits. Pupils are equal. No rashes noted. Neck is supple without lymphadenopathy L does subtle swelling in the right upper/adenoid area bilaterally though I think. Ears appear clear. Oropharyngeal exam with numerous areas of eroded dentition and decay. There is swelling on the buccal surface of the right lower jaw anterolateral. Slightly palpable exteriorly as well. I do not see a place that I would go to drain this. Does not have evidence otherwise of gingivitis. Swelling on right knee anteriorly consistent with prepatellar bursitis Const: Vital Signs, click to edit/add: Vital Signs - 24 hr 04/08/25 21:10 Temperature 98.1 F Pulse Rate [Pulse Oximeter] 87 Respiratory Rate 18 Blood Pressure [Ri ght Upper Arm] 178/93 H Pulse Oximetry 97 Oxygen Delivery Me thod Room Air Documenting provider has reviewed patient's vital signs: yes Course Vital Signs Vital signs: Initial Vital Signs Temperature 98.1 F 04/08/25 21:10 Temperature Source Temporal Artery Scan 04/08/25 21:10 Pulse Rate 87 04/08/25 21:10 Pulse Rhythm Regular 04/08/25 21:10 Respiratory Rate 18 04/08/25 21:10 Blood Pressure 178/93 H 04/08/25 21:10 Blood Pressure Mean 121 H 04/08/25 21:10 Blood Pressure Position Sitting 04/08/25 21:10 Pulse Oximetry 97 04/08/25 21:10 Oxygen Delivery Method Room Air 04/08/25 21:10 Vital Signs Temperature 98.1 F 04/08/25 21:10 Pulse Rate 87 04/08/25 21:10 Respiratory Rate 18 04/08/25 21:10 Blood Pressure 178/93 H 04/08/25 21:10 Pulse Oximetry 97 04/08/25 21:10 Oxygen Delivery Method Room Air 04/08/25 21:10 Temperature 98.1 F 04/08/25 21:10 Pulse Rate 87 04/08/25 21:10 Respiratory Rate 18 04/08/25 21:10 Blood Pressure 178/93 H 04/08/25 21:10 Pulse Oximetry 97 04/08/25 21:10 Oxygen Delivery Method Room Air 04/08/25 21:10 Medical Decision Making MDM Narrative Medical decision making narrative: Does appear to have some reactive dental issue possible abscess. I agree with his thinking that might benefit from an antibiotic pending a dental follow-up. No red flags otherwise. Symptoms I do not think represent He's palsy or other cranial nerve deficit. For further discussion Mr. Osorio feels he can handle his pain with available medications. See patient discharge plan for further discussion As you said can control discomfort with ibuprofen and your tramadol if necessary. Prescribing amoxicillin from [facility]. See dental list for some other options that might be helpful for more urgent/emergent care. Be seen though again for marked increase in swelling, pain and especially associated fever. Medical Records Medical records reviewed: Yes I reviewed the patient's medical records Discharge Plan Discharge Clinical Impression: Dental abscess Patient Disposition: Home, Self-Care Condition: Stable Additional Instructions: As you said can control discomfort with ibuprofen and your tramadol if necessary. Prescribing amoxicillin from [facility]. See dental list for some other options that might be helpful for more urgent/emergent care. Be seen though again for marked increase in swelling, pain and especially associated fever. Prescriptions: No Action dextroamphetamine-amphetamine 30 mg tablet 30 mg PO DIRECTED Rx Instructions: administer doses at least 4-6 hours apart takes 1/2 tablet in qam with xr 30mg & 1 full tab in afternoon prednisone 2.5 mg tablet 2.5 mg PO DAILY PRN Rx Instructions: for flareups (1-3 tabs as needed) terbinafine HCl 250 mg tablet 250 mg PO QDAY Qty: 60 0RF dextroamphetamine-amphetamine 30 mg capsule,extended release 24hr 1 cap PO QAM escitalopram oxalate 10 mg tablet 10 mg PO DAILY epinephrine 0.3 mg/0.3 mL auto-injector 0.3 mg IM ONCE PRN Rx Instructions: as a single dose; may repeat once tramadol 50 mg tablet 50 mg PO Q4H PRN (Reason: pain) Qty: 30 1RF sildenafil 100 mg tablet 100 mg PO QDAY PRN (Reason: sexual activity) Qty: 7 2RF Rx Instructions: administer 30 minutes to 4 hours before activity Follow Up/Referrals: Marcus Carreno MD [Primary Care Provider, Family Practice] Stand Alone Forms: [facility] Info Instructions
== END 2025-04-08 22:04 | disposition home or self-care (01) ==
PROVIDERS: Emergency Provider Family Medicine; PCP Family Medicine
DX: K04.7 Periapical abscess without sinus (principal)
CPT/HCPCS: 99283; 99284

== ENCOUNTER 2025-04-17 14:24 | Outpatient (CLI) | payer BC, SELFPAY ==
[2025-04-17] MEDS: PERFLUTREN LIPID MICROSPHERES 2 ML VIAL IVP (15:03)
[2025-04-17 15:25] VITALS: BP 124/78; PULSE 81; RESP 24; O2SAT 98
--- NOTE | 2025-04-17 15:38 | W.PM.STED ---
Stress Test Note Date Date Seen: 04/17/25 Date of test: 04/17/25 Providers Primary care provider: Marcus Carreno Stress test physician: Sveta Magallon Stress Test Note Stress test ordered: Stress Echo Indication for test: Dyspnea, strong family history CAD [facility] Results discussion: Resting EKG: Sinus rhythm, 74 beats per minute. Resting blood pressure: 128/82 Stress test: Patient is consented on ordered stress test of treadmill exercise echo. Standard Jorden protocol is followed. Patient exercised to 6 minutes 3 seconds, unfortunately there was an error in stopping this test and could not be restarted. This level exercise was equivalent to 7.3 Mets. Patient was significantly dyspneic but no chest pain. After stress testing, pulse oximetry was 98%. He made a maximum heart rate of 124 which was 93% of a calculated target heart rate of 133. This would give him a rate pressure product of 16,120. He had no concerning blood pressure changes, no arrhythmia, no diagnostic EKG changes of ischemia. Await echo images to couple this for a full formal diagnostic. Note patient did require definity. Impression: Subjectively positive with dyspnea, objectively negative EKG but suboptimal heart rate obtain due to technical error. Follow up suggested: Will await echo images. Obviously if the echo images are concerning for ischemia at this lower level work load, patient obviously needs further intervention and cardiology evaluation. If there is any concern about this being suboptimal, we are committed to providing a repeat tested this patient without further charge. I have contacted his primary provider Dr. Carreno and updated him on this.
== END 2025-04-17 14:25 | disposition home or self-care (01) ==
PROVIDERS: PCP Family Medicine; Visit Provider Family Medicine
DX: R06.09 Other forms of dyspnea (principal); I35.1 Nonrheumatic aortic (valve) insufficiency
CPT/HCPCS: 93016; 93325; 93351; Q9957